=== PATIENT | male | born 1980 | race Caucasian/White ===

== ENCOUNTER → 2018-09-14 18:19 | Outpatient (CLI) | payer OTHER, SELFPAY ==
--- NOTE | 2018-09-14 18:21 | DI.RAD.S_ITS ---
PROCEDURE: XR FOOT LT MIN 3V INDICATIONS: foot pain TECHNIQUE: 3 views of the foot were acquired. COMPARISON: None. FINDINGS: Bones: No fractures or dislocations. No suspicious bony lesions. Mild degenerative joint disease in the intertarsal, tarsometatarsal and interphalangeal joints. Soft tissues: No tibiotalar joint effusion. Achilles tendon appears normal. IMPRESSION: No fracture. Mild degenerative joint disease. Dictated by: Jaun Batista M.D. on 09/14/2018 at 19:19 Approved by: Jaun Batista M.D. on 09/14/2018 at 19:21
== END ==
PROVIDERS: Visit Provider Physician Assistant
DX: M79.672 Pain in left foot (principal); M19.072 Primary osteoarthritis, left ankle and foot
CPT/HCPCS: 73630

== ENCOUNTER → 2019-06-17 15:07 | Outpatient (CLI) | payer OTHER, SELFPAY ==
[2019-06-17 15:51] LABS: PH Semen 8 (7-8)
[2019-06-17 15:53] LABS: Liquefaction Semen YES (YES); Volume Semen 2 (1.0-5.0)
[2019-06-17 15:57] LABS: Sperm Count 0 x10^6/mL (20-150)
== END ==
PROVIDERS: Visit Provider Obstetrics & Gynecology
DX: Z31.41 Encounter for fertility testing (principal)
CPT/HCPCS: 89320

== ENCOUNTER → 2019-07-31 16:09 | Outpatient (CLI) | payer OTHER, SELFPAY ==
--- NOTE | 2019-07-31 | DI.RAD.S_ITS ---
PROCEDURE: XR KNEE RT 3V INDICATIONS: Right knee pain TECHNIQUE: 3 views of the knee were acquired. COMPARISON: None. FINDINGS: Bones: No fractures or dislocations. No suspicious bony lesions. Fragmentation of the tibial tuberosity Soft tissues: No joint effusion. No suspicious soft tissue calcifications. IMPRESSION: 1. Fragmentation of the tibial tuberosity suggesting remote Bijal-Schlatter's disease. 2. No definite acute fracture or dislocation. Dictated by: Roderick Alonzo [facility] Interpreted: Yoel Thompson MD on 07/31/2019 at 16:57 Approved by: Yoel Thompson M.D. on 07/31/2019 at 17:30
== END ==
PROVIDERS: Visit Provider Student in an Organized Health Care Education/Training Program
DX: M25.561 Pain in right knee (principal)
CPT/HCPCS: 73562

== ENCOUNTER 2019-12-19 10:55 | Emergency (ER) | payer OTHER, SELFPAY ==
[2019-12-19 11:00] VITALS: BP 146/81; PULSE 93; RESP 18; TEMP 36.7; O2SAT 98
--- NOTE | 2019-12-19 11:05 | ED_ITS ---
HPI - General Adult General Chief complaint: Extremity Injury, Lower Stated complaint: Right Ankle Injury Time Seen by Provider: 12/19/19 10:57 Source: patient Mode of arrival: Wheelchair Limitations: no limitations History of Present Illness HPI narrative: 39-year-old male here for evaluation right ankle injury. Patient states that he was getting down out of his truck when he stepped awkwardly landing on the outside of his right ankle. He was able to ambulate afterwards but has quite a bit of discomfort. Has not tried anything for symptoms prior to arrival. Has never had an injury like this in the past. Related Data Home Medications Medication Instructions Recorded Confirmed glimepiride [Amaryl] 4 mg PO QDAY #0 05/24/17 omeprazole 20 mg PO QDAY #0 05/24/17 calcium carbonate 500 mg calcium 500 mg PO BID tab 09/14/18 09/14/18 (1,250 mg) tablet cholecalciferol (vitamin D3) 50 2,000 unit PO DAILY 09/14/18 09/14/18 mcg (2,000 unit) capsule citalopram 40 mg tablet 40 mg PO DAILY 09/14/18 09/14/18 lamotrigine 200 mg tablet 400 mg PO BID tab 09/14/18 09/14/18 Allergies Allergy/AdvReac Type Severity Reaction Status Date / Time amoxicillin [AMOXICILLIN] Allergy Unknown Verified 12/19/19 11:06 Review of Systems Constitutional Constitutional: Denies fever(s) ENT Ears, Nose, Mouth, and Throat: Denies disequilibrium Musculoskeletal Musculoskeletal: Denies abnormal gait Comments: Right ankle pain Integumentary/Breasts Skin/Breast: Denies lesions and Denies rash Neurologic Neurologic: Denies abnormal gait, Denies behavioral changes, Denies paresthesias and Denies disequilibrium Psychiatric Psychiatric: Denies behavioral changes Hematologic/Lymphatic Hematologic/Lymphatic: Denies easy bleeding and Denies easy bruising Patient History Medical History Seizure (Inactive) Social History Smoking Status: Former smoker (quit 10 years ago) Smoking Status: Former smoker (quit 10 years ago) Exam Initial Vital Signs Initial Vital Signs: Vital Signs Temperature 98.1 F 12/19/19 11:00 Pulse Rate 93 H 12/19/19 11:00 Respiratory Rate 18 12/19/19 11:00 Blood Pressure 146/81 H 12/19/19 11:00 Pulse Oximetry 98 12/19/19 11:00 Const General: cooperative, comfortable and well developed Limitations: mental status not altered HENMT Head: normal to inspection and normocephalic Resp Effort & Inspection: normal respiratory effort Cardio Pulses: dorsalis pedis present on the right Skin Lesions: no lesions Neuro General: alert and awake Cognition: normal cognition Speech: speech normal Extrem Other: No proximal fibula tenderness on the right. Has tenderness to palpation around the medial lateral malleolus of the right ankle. No Achilles tenderness. No tenderness along the base of the 5th metatarsal. No midfoot or toe tenderness. Psych Appearance: grossly normal and well kempt Procedures Orthopedic Splinting/Casting Injury #1: Side: right Lower Extremity Injury Location: ankle Lower Extremity Immobilizer: David wrap Post splinting neuro exam: intact Post splinting vascular exam: intact Placed by: Nursing Course Orders Ordered: ED Orders 12/19/19 11:04 XR ankle RT min 3V Stat Vital Signs Vital signs: Vital Signs - 8 hr 12/19/19 11:00 Temperature 98.1 F Pulse Rate 93 H Respiratory Rate 18 Blood Pressure 146/81 H Pulse Oximetry 98 Medical Decision Making Imaging Data Extremity x-ray #1: Radiologist's Impression: [address] [address] XRay Report Signed Patient: Guillaume Lee PMR#: [id number] : 1980Acct:[id number] Age/Sex: 39 / MDate of Service: 12/19/19 Loc: ED Accession Number: [id number] Procedure: XR ankle RT min 3V Ordering Provider: Hamilton Cabezas D.O. PROCEDURE: XR ANKLE RT MIN 3V INDICATIONS: Ankle pain after fall TECHNIQUE: 3 views of the ankle were acquired. COMPARISON: None. FINDINGS: Bones: No fractures or dislocations. Ankle mortise is normally aligned. No suspicious bony lesions. Soft tissues: Lateral malleolar soft tissue edema is present. Achilles tendon appears normal. IMPRESSION: Lateral malleolar soft tissue edema. No visualized acute fracture or dislocation. However, if clinical concern and/or pain persist, short interval imaging followup in 7-10 days is recommended, as occult injury cannot be definitively excluded. Dictated by: Mackenzie Contreras M.D. on 12/19/2019 at 11:29 Approved by: Mackenzie Contreras M.D. on 12/19/2019 at 11:30 MDM Narrative Medical decision making narrative: Neurovascular intact, no fractures on the x- rays, placed in a David bandage for comfort. He states that he has crutches at home. We did discuss return precautions and follow-up instructions in care instructions. He expressed understanding and agreement. Discharge Plan Departure Patient Disposition: Home Clinical Impression: Ankle sprain and strain Instructions: DI for Ankle Sprain, How To Perform RICE (Rest, Ice, Compress, Elevate), How to Apply an Elastic Wrap on Ankle Activity Restrictions/Additional Instructions: There were no fractures on the x-rays. I do recommend you keep your ankle elevated and iced as much as possible however you can walk on your right leg has tolerated. Contact her primary provider for follow-up. Prescriptions: No Action lamotrigine 200 mg tablet 400 mg PO BID RF: 0 citalopram [Celexa] 40 mg tablet 40 mg PO DAILY RF: 0 cholecalciferol (vitamin D3) 2,000 unit capsule 2,000 unit PO DAILY RF: 0 calcium carbonate [Calcium 500] 500 mg calcium (1,250 mg) tablet 500 mg PO BID RF: 0 glimepiride [Amaryl] 4 MG tablet 4 mg PO QDAY Qty: 0 RF: 0 omeprazole 20 MG capsule,delayed release(DR/EC) 20 mg PO QDAY Qty: 0 RF: 0
== END 2019-12-19 12:03 | disposition home or self-care (01) ==
PROVIDERS: Emergency Provider Emergency Medicine
DX: S93.401A Sprain of unspecified ligament of right ankle, initial encounter (principal); S96.911A Strain of unspecified muscle and tendon at ankle and foot level, right foot, initial encounter; X58.XXXA Exposure to other specified factors, initial encounter
CPT/HCPCS: 73610; 99283

== ENCOUNTER 2023-01-04 17:56 | Emergency (ER) | payer SELFPAY ==
[2023-01-04] VITALS (15 sets, daily range): BP systolic 119–137; BP diastolic 62–83; PULSE 66–99; RESP 12–41; TEMP 37.1; O2SAT 93–98; BMI 36.2
--- NOTE | 2023-01-04 18:10 | DI.CT.S_ITS ---
PROCEDURE: CT HEAD/BRAIN WO CON INDICATIONS: seizure disorder, more frequent than normal TECHNIQUE: Noncontrast 4.5 mm thick angled axial sections acquired from the foramen magnum to the vertex, with coronal and sagittal reformats. For radiation dose reduction, the following was used: automated exposure control, adjustment of mA and/or kV according to patient size. COMPARISON: [facility], CT, HEAD WITHOUT CONTRAST, 05/24/2017, 13:16. FINDINGS: Image quality: Excellent. CSF spaces: Basal cisterns are patent. No extra-axial fluid collections. Ventricles are normal in size and shape. Brain: No midline shift. No intracranial masses or hemorrhage. Barkley-white matter interface is normal. Skull and face: Calvarium and visualized facial bones are intact, without suspicious lesions. Sinuses: Visualized sinuses and mastoids are clear. IMPRESSION: Normal CT of the brain Approved by: Jose Unger M.D. on 01/04/2023 at 17:37
--- NOTE | 2023-01-04 18:10 | ED_ITS ---
HPI - Seizure <Mary Dixon, - Last Filed: 01/05/23 18:27> General Chief Complaint: Seizure Stated Complaint: aime is having multiple siezures Time Seen by Provider: 01/04/23 18:01 History of Present Illness HPI Narrative: This is a 42-year-old male with history of seizure disorder, typically petite mal seizures where he turns his head to the right and has upper extremity shaking, diabetes and GERD. Patient presents with complaint of increased freq uency of seizure activity and change in type of seizure. Patient typically has seizures about every 2 weeks, he and his partner state he is had 3 seizures in the last 24 hours to her petite mal lasting 15 seconds to a minute which is and 1 appeared to be tonic-clonic which lasted min in length. The most recent was at 4:45 p.m. today and the initial was around 10:00pm. in the evening yesterday. Patient's seizures typically about 15 seconds. Patient did have some lacerations on his lips and tongue. Use complain of little bit headache. He states his aphasia which is always present is a little bit worse. He has not appreciate any weakness, numbness or loss of sensation. He denies fevers, no cold cough or congestion. No chest pain or shortness of breath, no vomiting but some mild nausea intermittently. No diarrhea, constipation, black or bloody stools. No dysuria, urgency or frequency. They are not aware of any bowel or bladder incontinence with his seizure activity or otherwise. Patient has been ambulating and moving normally. Patient does note he missed 1 dose of his [place] buddy yesterday morning which is atypical. And he was off his acarbose for a period of time. His medications are acarbose, glimepiride, lamotrigine and citalopram. His lamotrigine dose is 400 mg b.i.d.. Does not believe he is had any prior surgeries. Allergic to amoxicillin. No tobacco, rare alcohol none recently, does use THC. No other illicit. Patient sees neurology with [facility], most recent visit was with Dr. Petey Song. He states he has been on his lamotrigine dose for quite some time at least 1-2 years maybe longer. Related Data Home Medications Medication Instructions Recorded Confirmed glimepiride 4 mg tablet (Amaryl) 4 mg PO QDAY ##0 05/24/17 06/27/22 omeprazole 20 mg capsule,delayed 20 mg PO QDAY ##0 05/24/17 06/27/22 release calcium carbonate 500 mg calcium 500 mg PO BID 09/14/18 06/27/22 (1,250 mg) tablet (Calcium 500) cholecalciferol (vitamin D3) 50 2,000 unit PO DAILY 09/14/18 06/27/22 mcg (2,000 unit) capsule citalopram 40 mg tablet (Celexa) 40 mg PO DAILY 09/14/18 06/27/22 lamotrigine 200 mg tablet 400 mg PO BID 09/14/18 06/27/22 Previous Rx's Medication Instructions Recorded levetiracetam 500 mg tablet 500 mg PO BID #60 tabs 01/05/23 (Keppra) Allergies Allergy/AdvReac Type Severity Reaction Status Date / Time amoxicillin [AMOXICILLIN] Allergy Unknown Verified 01/04/23 18:18 Review of Systems <Mary Dixon DO - Last Filed: 01/05/23 18:27> Review of Systems ROS Unobtainable: All systems reviewed & are unremarkable except as noted in HPI and below Patient History <Mary Dixon DO - Last Filed: 01/05/23 18:27> Medical History (Updated 01/04/23 @ 19:42 by Mary Dixon DO) Seizure Social History Smoking Status: Former smoker (quit 10 years ago) Smoking Status: Former smoker (quit 10 years ago) alcohol intake frequency: 0-2 drinks per day Substance Use Type: marijuana Exam <Mary Dixon DO - Last Filed: 01/05/23 18:27> Narrative Exam Narrative: GEN: well nourished, well appearing male, alert and oriented x 3, patient appears to be in mild distress. HEENT: Atraumatic, pupils are equal round reactive to light, extraocular movements are intact, nares are clear, TMs are clear with no fluid. Throat is clear without any exudates, erythema, tonsillar enlargement or uvular deviation HEART: Regular rate and rhythm without murmur, clicks, rubs. Pulses are equal in upper and lower extremities LUNGS:Lungs clear to auscultation, no wheezes, rales, crackles, chest moves symmetrically ABD:bowel sounds normal, soft, non-tender, no guarding, rebound, rigidity, no m asses noted, no hepatosplenomegaly :No CVA tenderness MSCL: Non-tender, no muscle atrophy, muscles strength 5/5 upper and lower extremities, full range of motion NEURO:CN 2-12 intact, sensation normal, reflexes 2/4 upper and lower extremities. finger nose finger test normal, heel haro test normal SKIN: No rash, erythema or other skin changes Initial Vital Signs Initial Vital Signs: Vital Signs Temperature 98.8 F 01/04/23 18:00 Pulse Rate 99 H 01/04/23 18:00 Respiratory Rate 18 01/04/23 18:00 Blood Pressure 134/62 01/04/23 18:00 Pulse Oximetry 97 01/04/23 18:00 Oxygen Delivery Method Room Air 01/04/23 18:00 <Allen De DO - Last Filed: 01/05/23 16:44> Initial Vital Signs Initial Vital Signs: Vital Signs Temperature 98.8 F 01/04/23 18:00 Pulse Rate 99 H 01/04/23 18:00 Respiratory Rate 18 01/04/23 18:00 Blood Pressure 134/62 01/04/23 18:00 Pulse Oximetry 97 01/04/23 18:00 Oxygen Delivery Method Room Air 01/04/23 18:00 Scores <Mary Dixon DO - Last Filed: 01/05/23 18:27> GCS [place] coma scale eye opening: Spontaneous [place] coma scale verbal response: Orientated [place] coma scale motor response: Obey commands [place] coma scale total score: 15 <Allen De DO - Last Filed: 01/05/23 16:44> GCS [place] coma scale total score: 15 Course <Mary Dixon DO - Last Filed: 01/05/23 18:27> Orders Ordered: Discontinued Medications Sodium Chloride (Normal Saline 0.9%) 1,000 mls @ 1,000 mls/hr IV BOLUS ONE Stop: 01/04/23 19:09 Last Infusion: 01/04/23 19:46 Dose: 0 mls/hr Documented By: Admin: 01/04/23 18:53 Dose: 1,000 mls/hr Documented By: KB Levetiracetam 1,000 mg/ Sodium (Chloride) 110 mls @ 440 mls/hr IV NOW ONE Stop: 01/04/23 18:11 Last Infusion: 01/04/23 19:12 Dose: 0 mls/hr Documented By: Admin: 01/04/23 18:40 Dose: 440 mls/hr Documented By: ESAU Levetiracetam (Levetiracetam 250 Mg Tablet) 500 mg PO BID [facility] Last Admin: 01/05/23 08:29 Dose: Not Given Documented By: Admin: 01/05/23 05:11 Dose: 500 mg Documented By: LISANDRA Levetiracetam (Levetiracetam 250 Mg Tablet) 500 mg PO 0500,1700 [facility] Last Admin: 01/05/23 16:34 Dose: 500 mg Documented By: AT Morphine Sulfate (Morphine 2 Mg/Ml Inj) 2 mg IV NOW ONE Stop: 01/04/23 20:17 Last Admin: 01/04/23 20:23 Dose: 2 mg Documented By: LISANDRA Vital Signs Vital signs: Vital Signs - 8 hr 01/05/23 10:30 01/05/23 10:30 01/05/23 11:00 Pulse Rate 74 Respiratory Rate 34 H Blood Pressure 123/68 125/74 Pulse Oximetry 95 Oxygen Delivery Method 01/05/23 11:00 01/05/23 11:30 01/05/23 11:30 Pulse Rate 91 H 80 Respiratory Rate 16 18 Blood Pressure 118/67 Pulse Oximetry 96 96 Oxygen Delivery Method Room Air 01/05/23 12:02 01/05/23 12:30 01/05/23 13:00 Pulse Rate 85 78 65 Respiratory Rate 15 Blood Pressure Pulse Oximetry Oxygen Delivery Method 01/05/23 13:30 01/05/23 14:00 01/05/23 14:30 Pulse Rate 61 58 L 58 L Respiratory Rate 13 16 16 Blood Pressure Pulse Oximetry 95 Oxygen Delivery Method 01/05/23 15:00 01/05/23 15:30 01/05/23 16:29 Pulse Rate 51 L 74 Respiratory Rate 16 22 Blood Pressure 121/59 L Pulse Oximetry 96 98 Oxygen Delivery Method Room Air Room Air 01/05/23 16:00 Pulse Rate 72 Respiratory Rate 18 Blood Pressure Pulse Oximetry 98 Oxygen Delivery Method <DO Una Ignacio Last Filed: 01/05/23 16:44> Orders Ordered: Discontinued Medications Sodium Chloride (Normal Saline 0.9%) 1,000 mls @ 1,000 mls/hr IV BOLUS ONE Stop: 01/04/23 19:09 Last Infusion: 01/04/23 19:46 Dose: 0 mls/hr Documented By: Admin: 01/04/23 18:53 Dose: 1,000 mls/hr Documented By: ESAU Levetiracetam 1,000 mg/ Sodium (Chloride) 110 mls @ 440 mls/hr IV NOW ONE Stop: 01/04/23 18:11 Last Infusion: 01/04/23 19:12 Dose: 0 mls/hr Documented By: Admin: 01/04/23 18:40 Dose: 440 mls/hr Documented By: ESAU Levetiracetam (Levetiracetam 250 Mg Tablet) 500 mg PO BID [facility] Last Admin: 01/05/23 08:29 Dose: Not Given Documented By: Admin: 01/05/23 05:11 Dose: 500 mg Documented By: LISANDRA Levetiracetam (Levetiracetam 250 Mg Tablet) 500 mg PO 0500,1700 [facility] Last Admin: 01/05/23 16:34 Dose: 500 mg Documented By: JANNY Morphine Sulfate (Morphine 2 Mg/Ml Inj) 2 mg IV NOW ONE Stop: 01/04/23 20:17 Last Admin: 01/04/23 20:23 Dose: 2 mg Documented By: LISANDRA Vital Signs Vital signs: Vital Signs - 8 hr 01/05/23 10:30 01/05/23 10:30 01/05/23 11:00 Pulse Rate 74 Respiratory Rate 34 H Blood Pressure 123/68 125/74 Pulse Oximetry 95 Oxygen Delivery Method 01/05/23 11:00 01/05/23 11:30 01/05/23 11:30 Pulse Rate 91 H 80 Respiratory Rate 16 18 Blood Pressure 118/67 Pulse Oximetry 96 96 Oxygen Delivery Method Room Air 01/05/23 12:02 01/05/23 12:30 01/05/23 13:00 Pulse Rate 85 78 65 Respiratory Rate 15 Blood Pressure Pulse Oximetry Oxygen Delivery Method 01/05/23 13:30 01/05/23 14:00 01/05/23 14:30 Pulse Rate 61 58 L 58 L Respiratory Rate 13 16 16 Blood Pressure Pulse Oximetry 95 Oxygen Delivery Method 01/05/23 15:00 01/05/23 15:30 01/05/23 16:29 Pulse Rate 51 L 74 Respiratory Rate 16 22 Blood Pressure 121/59 L Pulse Oximetry 96 98 Oxygen Delivery Method Room Air Room Air 01/05/23 16:00 Pulse Rate 72 Respiratory Rate 18 Blood Pressure Pulse Oximetry 98 Oxygen Delivery Method MDM - Seizure <Mary Dixon, DO - Last Filed: 01/05/23 18:27> Lab Data 01/04/23 18:11 01/04/23 18:11 Labs: Lab Results 01/04/23 01/04/23 01/04/23 Range/Units 18:11 18:11 18:11 WBC 8.9 (4.5-11.0) X10^3/uL RBC 5.16 (4.5-5.9) X10^6/uL Hgb 16.1 (13.5-17.5) g/dL Hct 46.8 (41-53) % MCV 90.6 (80-100) fL MCH 31.2 (26-34) PG MCHC 34.5 (30-36) % RDW 12.5 (11.6-14.8) % Plt Count 220 (150-400) X10^3/uL Neut % (Auto) 71.4 (50-75) % Lymph % (Auto) 20.0 L (25-40) % [place] % (Auto) 7.0 (3-14) % Eos % (Auto) 0.9 L (2-4) % Baso % (Auto) 0.7 (0-2) % Neut # (Auto) 6300 (2021-1402) /uL Lymph # (Auto) 1800 (0884-2590) /uL [place] # (Auto) 600 (0-900) /uL Eos # (Auto) 100 (0-450) /uL Baso # (Auto) 100 (0-100) /uL Sodium 134 L (137-145) mmol/L Potassium 3.8 (3.4-5.1) mmol/L Chloride 97 L (98-107) mmol/L Carbon Dioxide 29 (22-32) mmol/L BUN 15 (9-20) mg/dL Creatinine 0.66 (0.66-1.25) mg/dL Estimated GFR > 60 (>60) mL/min BUN/Creatinine Ratio 22.7 H (6-22) Glucose 361 H (70-100) mg/dL Calcium 9.4 (8.4-10.2) mg/dL Total Bilirubin 1.7 H (0.2-1.3) mg/dL AST 31 (17-59) IU/L ALT 34 (<50) IU/L Alkaline Phosphatase 99 (38-126) U/L Total Creatine Kinase 320 H (55-170) U/L Total Protein 7.7 (6.3-8.2) g/dL Albumin 4.3 (3.5-5.0) g/dL Globulin 3.4 (1.7-4.1) g/dL Albumin/Globulin Ratio 1.3 (1.0-2.8) Lipase 135 (23-300) U/L Urine RBC (0-5/HPF) Urine WBC (0-5/HPF) Ur Squamous Epith Cells (0-5/HPF) Urine Bacteria (None) Ur Culture Indicated? U Opiates 300ng/mL cut (Negative) Ur Oxycodone Screen (Negative) Urine Methadone Screen (Negative) Ur Barbiturates Screen (Negative) U Tricyclic Antidepress (Negative) Ur Phencyclidine Scrn (Negative) Ur Amphetamines Screen (Negative) U Methamphetamines Scrn (Negative) Ur MDMA Scrn (Ecstasy) (Negative) U Benzodiazepines Scrn (Negative) Urine Cocaine Screen (Negative) U Marijuana (THC) Screen (Negative) Ethyl Alcohol < 10 ( - 10) mg/dL Ketones (<0.27) mmol/L SARS-CoV-2 (PCR) (Negative) 01/04/23 01/04/23 01/04/23 Range/Units 18:11 19:30 19:40 WBC (4.5-11.0) X10^3/uL RBC (4.5-5.9) X10^6/uL Hgb (13.5-17.5) g/dL Hct (41-53) % MCV (80-100) fL MCH (26-34) PG MCHC (30-36) % RDW (11.6-14.8) % Plt Count (150-400) X10^3/uL Neut % (Auto) (50-75) % Lymph % (Auto) (25-40) % [place] % (Auto) (3-14) % Eos % (Auto) (2-4) % Baso % (Auto) (0-2) % Neut # (Auto) (2854-2439) /uL Lymph # (Auto) (7682-9493) /uL [place] # (Auto) (0-900) /uL Eos # (Auto) (0-450) /uL Baso # (Auto) (0-100) /uL Sodium (137-145) mmol/L Potassium (3.4-5.1) mmol/L Chloride (98-107) mmol/L Carbon Dioxide (22-32) mmol/L BUN (9-20) mg/dL Creatinine (0.66-1.25) mg/dL Estimated GFR (>60) mL/min BUN/Creatinine Ratio (6-22) Glucose (70-100) mg/dL Calcium (8.4-10.2) mg/dL Total Bilirubin (0.2-1.3) mg/dL AST (17-59) IU/L ALT (<50) IU/L Alkaline Phosphatase (38-126) U/L Total Creatine Kinase (55-170) U/L Total Protein (6.3-8.2) g/dL Albumin (3.5-5.0) g/dL Globulin (1.7-4.1) g/dL Albumin/Globulin Ratio (1.0-2.8) Lipase (23-300) U/L Urine RBC (0-5/HPF) Urine WBC (0-5/HPF) Ur Squamous Epith Cells (0-5/HPF) Urine Bacteria (None) Ur Culture Indicated? U Opiates 300ng/mL cut Negative (Negative) Ur Oxycodone Screen Negative (Negative) Urine Methadone Screen Negative (Negative) Ur Barbiturates Screen Negative (Negative) U Tricyclic Antidepress Negative (Negative) Ur Phencyclidine Scrn Negative (Negative) Ur Amphetamines Screen Negative (Negative) U Methamphetamines Scrn Negative (Negative) Ur MDMA Scrn (Ecstasy) Negative (Negative) U Benzodiazepines Scrn Negative (Negative) Urine Cocaine Screen Negative (Negative) U Marijuana (THC) Screen Positive H (Negative) Ethyl Alcohol ( - 10) mg/dL Ketones 0.04 (<0.27) mmol/L SARS-CoV-2 (PCR) Negative (Negative) 01/04/23 Range/Units 19:40 WBC (4.5-11.0) X10^3/uL RBC (4.5-5.9) X10^6/uL Hgb (13.5-17.5) g/dL Hct (41-53) % MCV (80-100) fL MCH (26-34) PG MCHC (30-36) % RDW (11.6-14.8) % Plt Count (150-400) X10^3/uL Neut % (Auto) (50-75) % Lymph % (Auto) (25-40) % [place] % (Auto) (3-14) % Eos % (Auto) (2-4) % Baso % (Auto) (0-2) % Neut # (Auto) (6026-9788) /uL Lymph # (Auto) (2620-3433) /uL [place] # (Auto) (0-900) /uL Eos # (Auto) (0-450) /uL Baso # (Auto) (0-100) /uL Sodium (137-145) mmol/L Potassium (3.4-5.1) mmol/L Chloride (98-107) mmol/L Carbon Dioxide (22-32) mmol/L BUN (9-20) mg/dL Creatinine (0.66-1.25) mg/dL Estimated GFR (>60) mL/min BUN/Creatinine Ratio (6-22) Glucose (70-100) mg/dL Calcium (8.4-10.2) mg/dL Total Bilirubin (0.2-1.3) mg/dL AST (17-59) IU/L ALT (<50) IU/L Alkaline Phosphatase (38-126) U/L Total Creatine Kinase (55-170) U/L Total Protein (6.3-8.2) g/dL Albumin (3.5-5.0) g/dL Globulin (1.7-4.1) g/dL Albumin/Globulin Ratio (1.0-2.8) Lipase (23-300) U/L Urine RBC None seen (0-5/HPF) Urine WBC 0-1/hpf (0-5/HPF) Ur Squamous Epith Cells None seen (0-5/HPF) Urine Bacteria None seen (None) Ur Culture Indicated? Cult not indicated U Opiates 300ng/mL cut (Negative) Ur Oxycodone Screen (Negative) Urine Methadone Screen (Negative) Ur Barbiturates Screen (Negative) U Tricyclic Antidepress (Negative) Ur Phencyclidine Scrn (Negative) Ur Amphetamines Screen (Negative) U Methamphetamines Scrn (Negative) Ur MDMA Scrn (Ecstasy) (Negative) U Benzodiazepines Scrn (Negative) Urine Cocaine Screen (Negative) U Marijuana (THC) Screen (Negative) Ethyl Alcohol ( - 10) mg/dL Ketones (<0.27) mmol/L SARS-CoV-2 (PCR) (Negative) Point of Care Testing Glucose POC [address] scan - head: Radiologist's Impression: [address] [address] [address] Scan Report Signed Patient: Guillaume Lee MR#: [id number] : 1980 Acct:[id number] Age/Sex: 42 / M Date of Service: 01/04/23 Loc: ED Accession Number: [id number] ?? Procedure: CT head/brain wo con Ordering Provider: Mary Dixon D.O. PROCEDURE:? CT HEAD/BRAIN WO CON ? INDICATIONS:? seizure disorder, more frequent than normal ? TECHNIQUE:? Noncontrast 4.5 mm thick angled axial sections acquired from the foramen magnum to the vertex, with coronal and sagittal reformats.? For radiation dose reduction, the following was used:? automated exposure control, adjustment of mA and/or kV according to patient size.? ? COMPARISON:? [facility], CT, HEAD WITHOUT CONTRAST, 05/24/2017, 13:16. ? FINDINGS:? Image quality:? Excellent.? ? CSF spaces:? Basal cisterns are patent.? No extra-axial fluid collections.? Ventricles are normal in size and shape.? ? Brain:? No midline shift.? No intracranial masses or hemorrhage.? [place]-white matter interface is normal.? ? Skull and face:? Calvarium and visualized facial bones are intact, without juan picious lesions.? ? Sinuses:? Visualized sinuses and mastoids are clear.? ? IMPRESSION:? Normal CT of the brain ? ? ? Approved by: Jose Unger M.D. on 01/04/2023 at 17:37? ECG Data Attestation: I personally reviewed and interpreted this ECG as follows: Interpretation: Normal sinus rhythm rate 82 MI 172 QRS of 98 QTC of 408. No acute ST changes. MDM Narrative Medical decision making narrative: This is a 42-year-old male history of seizure disorder with increased frequency and a change in character of seizures. Patient normally petit mal seizures that last 15 seconds that consistent turning his head to the right and shaking of his upper body usually once every 2 weeks. He is noticed increase in frequency little bit over the past month but specifically 3 episodes in the past [address] was obtained which is negative for acute change. Patient is hyperglycemic with a sugar of 360. Patient's CBC shows normal white count, hemoglobin/hematocrit and platelets. Lymphocytes are low with normal neutrophils. Chemistry shows a sodium of 134 chloride 97, CO2 of 29 with normal renal function and BUN. Glucose is 361 sodium corrected is 138. Anion gap would be 8, 12 of corrected. Patient's bilirubin is 1.7 but similar to 2017 when he was 2.1. Total CK slightly elevated at 320 otherwise normal LFTs. ETOH is negative. Urine and U tox show Suspect some of patient's changes maybe related to his hyperglycemia he received a L fluids, recheck glucose afterwards. Discussed with patient he just restart ed his acarbose about 5 days ago, also notes he has not been checking his sugars for some time she and his partner note that 200 is typically a good number for and that he might be quite higher typically. Spoke with Dr. Song, neurology recommend patient be loaded with a 1000 mg Keppra, then 500 mg p.o. b.i.d. as his new 2nd anti convulsant had being observed for additional seizures for concern for status epilepticus. If patient is seizure free can d/c home. Spoke with Dr. Brennan, hospitalist would asked that we try to transfer as we do not have Neurology here and we do not have EEG capability. Attempted to find placement for patient with no luck. Patient could likely be discharged home today after 24 hours observation if no additional changes or seizure activity with follow up with Dr. Song. <Allen De DO - Last Filed: 01/05/23 16:44> Lab Data Labs: Lab Results 01/04/23 01/04/23 01/04/23 Range/Units 18:11 18:11 18:11 WBC 8.9 (4.5-11.0) X10^3/uL RBC 5.16 (4.5-5.9) X10^6/uL Hgb 16.1 (13.5-17.5) g/dL Hct 46.8 (41-53) % MCV 90.6 (80-100) fL MCH 31.2 (26-34) PG MCHC 34.5 (30-36) % RDW 12.5 (11.6-14.8) % Plt Count 220 (150-400) X10^3/uL Neut % (Auto) 71.4 (50-75) % Lymph % (Auto) 20.0 L (25-40) % [place] % (Auto) 7.0 (3-14) % Eos % (Auto) 0.9 L (2-4) % Baso % (Auto) 0.7 (0-2) % Neut # (Auto) 6300 (1767-1692) /uL Lymph # (Auto) 1800 (7362-4531) /uL [place] # (Auto) 600 (0-900) /uL Eos # (Auto) 100 (0-450) /uL Baso # (Auto) 100 (0-100) /uL Sodium 134 L (137-145) mmol/L Potassium 3.8 (3.4-5.1) mmol/L Chloride 97 L (98-107) mmol/L Carbon Dioxide 29 (22-32) mmol/L BUN 15 (9-20) mg/dL Creatinine 0.66 (0.66-1.25) mg/dL Estimated GFR > 60 (>60) mL/min BUN/Creatinine Ratio 22.7 H (6-22) Glucose 361 H (70-100) mg/dL Calcium 9.4 (8.4-10.2) mg/dL Total Bilirubin 1.7 H (0.2-1.3) mg/dL AST 31 (17-59) IU/L ALT 34 (<50) IU/L Alkaline Phosphatase 99 (38-126) U/L Total Creatine Kinase 320 H (55-170) U/L Total Protein 7.7 (6.3-8.2) g/dL Albumin 4.3 (3.5-5.0) g/dL Globulin 3.4 (1.7-4.1) g/dL Albumin/Globulin Ratio 1.3 (1.0-2.8) Lipase 135 (23-300) U/L Urine RBC (0-5/HPF) Urine WBC (0-5/HPF) Ur Squamous Epith Cells (0-5/HPF) Urine Bacteria (None) Ur Culture Indicated? U Opiates 300ng/mL cut (Negative) Ur Oxycodone Screen (Negative) Urine Methadone Screen (Negative) Ur Barbiturates Screen (Negative) U Tricyclic Antidepress (Negative) Ur Phencyclidine Scrn (Negative) Ur Amphetamines Screen (Negative) U Methamphetamines Scrn (Negative) Ur MDMA Scrn (Ecstasy) (Negative) U Benzodiazepines Scrn (Negative) Urine Cocaine Screen (Negative) U Marijuana (THC) Screen (Negative) Ethyl Alcohol < 10 ( - 10) mg/dL Ketones (<0.27) mmol/L SARS-CoV-2 (PCR) (Negative) 01/04/23 01/04/23 01/04/23 Range/Units 18:11 19:30 19:40 WBC (4.5-11.0) X10^3/uL RBC (4.5-5.9) X10^6/uL Hgb (13.5-17.5) g/dL Hct (41-53) % MCV (80-100) fL MCH (26-34) PG MCHC (30-36) % RDW (11.6-14.8) % Plt Count (150-400) X10^3/uL Neut % (Auto) (50-75) % Lymph % (Auto) (25-40) % [place] % (Auto) (3-14) % Eos % (Auto) (2-4) % Baso % (Auto) (0-2) % Neut # (Auto) (0879-0809) /uL Lymph # (Auto) (6594-2775) /uL [place] # (Auto) (0-900) /uL Eos # (Auto) (0-450) /uL Baso # (Auto) (0-100) /uL Sodium (137-145) mmol/L Potassium (3.4-5.1) mmol/L Chloride (98-107) mmol/L Carbon Dioxide (22-32) mmol/L BUN (9-20) mg/dL Creatinine (0.66-1.25) mg/dL Estimated GFR (>60) mL/min BUN/Creatinine Ratio (6-22) Glucose (70-100) mg/dL Calcium (8.4-10.2) mg/dL Total Bilirubin (0.2-1.3) mg/dL AST (17-59) IU/L ALT (<50) IU/L Alkaline Phosphatase (38-126) U/L Total Creatine Kinase (55-170) U/L Total Protein (6.3-8.2) g/dL Albumin (3.5-5.0) g/dL Globulin (1.7-4.1) g/dL Albumin/Globulin Ratio (1.0-2.8) Lipase (23-300) U/L Urine RBC (0-5/HPF) Urine WBC (0-5/HPF) Ur Squamous Epith Cells (0-5/HPF) Urine Bacteria (None) Ur Culture Indicated? U Opiates 300ng/mL cut Negative (Negative) Ur Oxycodone Screen Negative (Negative) Urine Methadone Screen Negative (Negative) Ur Barbiturates Screen Negative (Negative) U Tricyclic Antidepress Negative (Negative) Ur Phencyclidine Scrn Negative (Negative) Ur Amphetamines Screen Negative (Negative) U Methamphetamines Scrn Negative (Negative) Ur MDMA Scrn (Ecstasy) Negative (Negative) U Benzodiazepines Scrn Negative (Negative) Urine Cocaine Screen Negative (Negative) U Marijuana (THC) Screen Positive H (Negative) Ethyl Alcohol ( - 10) mg/dL Ketones 0.04 (<0.27) mmol/L SARS-CoV-2 (PCR) Negative (Negative) 01/04/23 Range/Units 19:40 WBC (4.5-11.0) X10^3/uL RBC (4.5-5.9) X10^6/uL Hgb (13.5-17.5) g/dL Hct (41-53) % MCV (80-100) fL MCH (26-34) PG MCHC (30-36) % RDW (11.6-14.8) % Plt Count (150-400) X10^3/uL Neut % (Auto) (50-75) % Lymph % (Auto) (25-40) % [place] % (Auto) (3-14) % Eos % (Auto) (2-4) % Baso % (Auto) (0-2) % Neut # (Auto) (9283-8452) /uL Lymph # (Auto) (9670-0724) /uL [place] # (Auto) (0-900) /uL Eos # (Auto) (0-450) /uL Baso # (Auto) (0-100) /uL Sodium (137-145) mmol/L Potassium (3.4-5.1) mmol/L Chloride (98-107) mmol/L Carbon Dioxide (22-32) mmol/L BUN (9-20) mg/dL Creatinine (0.66-1.25) mg/dL Estimated GFR (>60) mL/min BUN/Creatinine Ratio (6-22) Glucose (70-100) mg/dL Calcium (8.4-10.2) mg/dL Total Bilirubin (0.2-1.3) mg/dL AST (17-59) IU/L ALT (<50) IU/L Alkaline Phosphatase (38-126) U/L Total Creatine Kinase (55-170) U/L Total Protein (6.3-8.2) g/dL Albumin (3.5-5.0) g/dL Globulin (1.7-4.1) g/dL Albumin/Globulin Ratio (1.0-2.8) Lipase (23-300) U/L Urine RBC None seen (0-5/HPF) Urine WBC 0-1/hpf (0-5/HPF) Ur Squamous Epith Cells None seen (0-5/HPF) Urine Bacteria None seen (None) Ur Culture Indicated? Cult not indicated U Opiates 300ng/mL cut (Negative) Ur Oxycodone Screen (Negative) Urine Methadone Screen (Negative) Ur Barbiturates Screen (Negative) U Tricyclic Antidepress (Negative) Ur Phencyclidine Scrn (Negative) Ur Amphetamines Screen (Negative) U Methamphetamines Scrn (Negative) Ur MDMA Scrn (Ecstasy) (Negative) U Benzodiazepines Scrn (Negative) Urine Cocaine Screen (Negative) U Marijuana (THC) Screen (Negative) Ethyl Alcohol ( - 10) mg/dL Ketones (<0.27) mmol/L SARS-CoV-2 (PCR) (Negative) Point of Care Testing Glucose POC 220 MDM Narrative Medical decision making narrative: This is a 42-year-old male history of seizure disorder with increased frequency and a change in character of seizures. Patient normally petit mal seizures that last 15 seconds that consistent turning his head to the right and shaking of his upper body usually once every 2 weeks. He is noticed increase in frequency little bit over the past month but specifically 3 episodes in the past [address] was obtained which is negative for acute change. Patient is hyperglycemic with a sugar of 360. Patient's CBC shows normal white count, hemoglobin/hematocrit and platelets. Lymphocytes are low with normal neutrophils. Chemistry shows a sodium of 134 chloride 97, CO2 of 29 with normal renal function and BUN. Glucose is 361 sodium corrected is 138. Anion gap would be 8, 12 of corrected. Patient's bilirubin is 1.7 but similar to 2017 when he was 2.1. Total CK slightly elevated at 320 otherwise normal LFTs. ETOH is negative. Urine and U tox show Suspect some of patient's changes maybe related to his hyperglycemia he received a L fluids, recheck glucose afterwards. Discussed with patient he just restarted his acarbose about 5 days ago, also notes he has not been checking his sugars for some time she and his partner note that 200 is typically a good number for and that he might be quite higher typically. Spoke with Dr. Song, neurology recommend patient be loaded with a 1000 mg Keppra, then 500 mg p.o. b.i.d. as his new 2nd anti convulsant had being observed for additional seizures for concern for status epilepticus. If patient is seizure free can d/c home. Spoke with Dr. Brennan, hospitalist would asked that we try to transfer as we do not have Neurology here and we do not have EEG capability. Attempted to find placement for patient with no luck. Patient could likely be discharged home today after 24 hours observation if no additional changes or seizure activity with follow up with Dr. Song. [0700] (Santino) Patient received in sign out from [Destiny]. I have reviewed the clinical course and performed an independent history and physical exam. Patient has been resting comfortably for the duration of the day with no ongoing seizure-like activity. Per the discussions above the plan is discharge at the 24 hour manas, prescriptions sent for Keppra. He will call neurology office in the morning to arrange for follow-up Discharge Plan Departure Patient Disposition: Home Clinical Impression: Increasing frequency of seizure activity, Hyperglycemia Instructions: DI for Seizure Disorder -- Adult Activity Restrictions/Additional Instructions: Please follow-up with Dr. Song for recheck. Please call for an appointment. You do have hyperglycemia or elevated blood glucose, continue taking her medications including your acarbose regularly. I would recommend restarting checking your glucose and following up with your physician to adjust medications if your numbers are not improving after being on your daily medications regularly. Please continue Lamictal as your usual prescribed dose. Please start and continue Keppra at 500mg twice daily. Prescription printed. Please return for any recurrent seizure activity, altered mental status, fevers, nausea, vomiting, new numbness, tingling weakness, difficulty with speech, difficulty with movement or other new or concerning changes. Prescriptions: New levetiracetam [Keppra] 500 mg tablet 500 mg PO BID Qty: 60 0RF No Action lamotrigine 200 mg tablet 400 mg PO BID citalopram [Celexa] 40 mg tablet 40 mg PO DAILY cholecalciferol (vitamin D3) 2,000 unit capsule 2,000 unit PO DAILY calcium carbonate [Calcium 500] 500 mg calcium (1,250 mg) tablet 500 mg PO BID glimepiride [Amaryl] 4 MG tablet 4 mg PO QDAY Qty: 0 omeprazole 20 MG capsule,delayed release(DR/EC) 20 mg PO QDAY Qty: 0 Referrals: Miscellaneous,MD Lety [Primary Care Provider] - Petey Song MD [Non-Staff] - Stand Alone Forms: Patient Portal/API
[2023-01-04 18:29] LABS: Add Manual Diff / Slide Review NO; Basophils Absolute Auto 100 /uL (0-100); Basophils Percent Auto 0.7 % (0-2); Eosinophils Absolute Auto 100 /uL (0-450); Eosinophils Percent Auto 0.9 % (2-4); Hematocrit 46.8 % (41-53); Hemoglobin 16.1 g/dL (13.5-17.5); Lymphocytes Absolute Auto 1800 /uL (1100-4500); Mean Corpuscular HGB Conc 34.5 % (30-36); Mean Corpuscular Hemoglobin 31.2 PG (26-34); Mean Corpuscular Volume 90.6 fL (80-100); Monocytes Absolute Auto 600 /uL (0-900); Neutrophils Absolute Auto 6300 /uL (1500-7000); Neutrophils Percent Auto 71.4 % (50-75); Platelet Count 220 X10^3/uL (150-400); Red Blood Cell Count 5.16 X10^6/uL (4.5-5.9); Red Cell Distribution Width 12.5 % (11.6-14.8); White Blood Cell Count 8.9 X10^3/uL (4.5-11.0)
[2023-01-04 18:34] LABS: Creatine Kinase 320 U/L (55-170)
[2023-01-04 18:36] LABS: Alanine Aminotransferase 34 IU/L (<50); Albumin 4.3 g/dL (3.5-5.0); Albumin Globulin Ratio 1.3 (1.0-2.8); Alkaline Phosphatase 99 U/L (38-126); Aspartate Aminotransferase 31 IU/L (17-59); BUN Creatinine Ratio 22.7 (6-22); Bilirubin Total 1.7 mg/dL (0.2-1.3); Blood Urea Nitrogen 15 mg/dL (9-20); Calcium 9.4 mg/dL (8.4-10.2); Carbon Dioxide 29 mmol/L (22-32); Chloride 97 mmol/L (98-107); Estimated Glomerular Filt Rate > 60 mL/min (>60); Ethanol (ETOH) < 10 mg/dL; Globulin 3.4 g/dL (1.7-4.1); Glucose 361 mg/dL (70-100); HEMOLYSIS 23 (0-50); Lipase 135 U/L (23-300); Potassium 3.8 mmol/L (3.4-5.1); Sodium 134 mmol/L (137-145); Total Protein 7.7 g/dL (6.3-8.2)
[2023-01-04] MEDS: levETIRAcetam 1,000 MG in SODIUM CHLORIDE 0.9% 100 ML 440 MG IV (18:40)
[2023-01-04] MEDS: SODIUM CHLORIDE 0.9% 1,000 ML 1000 ML IV (18:53)
[2023-01-04 19:16] LABS: Ketones (Beta-Hydroxybutyrate) 0.04 mmol/L (<0.27)
[2023-01-04 19:52] LABS: UR Morphine/Opiate cutoff 300 Negative (Negative); Ur Creatinine Normal (Normal); Ur Specific Gravity Normal (Normal); Urine Amphetamines Negative (Negative); Urine Barbiturates Negative (Negative); Urine Benzodiazepines Negative (Negative); Urine Cocaine Negative (Negative); Urine MDMA Negative (Negative); Urine Methadone Negative (Negative); Urine Methamphetamines Negative (Negative); Urine Oxycodone Negative (Negative); Urine Phencyclidine Negative (Negative); Urine Tetrahydrocannabinol Positive (Negative); Urine Tricyclic Antidepressant Negative (Negative); Urine pH Normal (Normal)
[2023-01-04 20:08] LABS: COVID19 -Nasal RAPID Negative (Negative)
[2023-01-04 20:19] LABS: Bacteria Urine None Seen; Culture Indicated Urine Cult Not Indicated; RBC Urine None Seen (0-5/HPF); Squamous Epithelial Cell Urine None Seen (0-5/HPF); WBC Urine 0-1/HPF (0-5/HPF)
[2023-01-04] MEDS: MORPHINE 2 MG/ML INJ IV (20:23)
--- NOTE | 2023-01-04 23:37 | PC.NURSE ---
CHARGE ACCOUNT CLERK note: Attempting to transfer out patient. Called the following places w/ the following responses. [facility]- [address]. No beds unless or a child. Asked if patient was either, no. [facility]: [address]. Full. Boarding no room at the inn. [facility]: [address]. Full boarding in their ER. [facility]: [address]. Nothing open at the moment. Call back after 2300. Called back at 2330, left message.
[2023-01-05] VITALS (35 sets, daily range): BP systolic 110–167; BP diastolic 58–74; PULSE 51–101; RESP 9–34; O2SAT 92–98
[2023-01-05] MEDS: levETIRAcetam 250 MG TABLET 500 MG PO ×2 (05:11→16:34)
[2023-01-09 14:56] LABS: Lamotrigine Lamictal 4.1 ug/mL (2.0-20.0)
== END 2023-01-05 16:50 | disposition home or self-care (01) ==
PROVIDERS: Emergency Medicine; Emergency Provider Emergency Medicine
DX: R56.9 Unspecified convulsions (principal); R73.9 Hyperglycemia, unspecified; R03.1 Nonspecific low blood-pressure reading; Z20.822 Contact with and (suspected) exposure to COVID-19
CPT/HCPCS: 70450; 80053; 80175; 80305; 80320; 81015; 82009; 82550; 82962; 83690; 85025; 87635; 93005; 93010; 96365; 96375; 99284; C9803; J1953; J2270

== ENCOUNTER → 2023-10-27 15:39 | Outpatient (CLI) | payer BC, SELFPAY ==
[2023-10-27 18:02] LABS: Add Manual Diff / Slide Review NO; Basophils Absolute Auto 100 /uL (0-100); Eosinophils Absolute Auto 200 /uL (0-450); Eosinophils Percent Auto 1.7 % (2-4); Hematocrit 46.9 % (41-53); Hemoglobin 16.3 g/dL (13.5-17.5); Lymphocytes Absolute Auto 2900 /uL (1100-4500); Lymphocytes Percent Auto 29.1 % (25-40); Mean Corpuscular HGB Conc 34.7 % (30-36); Mean Corpuscular Hemoglobin 31.6 PG (26-34); Mean Corpuscular Volume 91.2 fL (80-100); Monocytes Absolute Auto 700 /uL (0-900); Monocytes Percent Auto 6.7 % (3-14); Neutrophils Absolute Auto 6000 /uL (1500-7000); Neutrophils Percent Auto 61.5 % (50-75); Platelet Count 257 X10^3/uL (150-400); Red Blood Cell Count 5.15 X10^6/uL (4.5-5.9); Red Cell Distribution Width 12.9 % (11.6-14.8); White Blood Cell Count 9.8 X10^3/uL (4.5-11.0)
[2023-10-27 18:15] LABS: Hemoglobin A1C% w Est Avg Glu 10.1 % (4.0-6.0)
[2023-10-27 18:25] LABS: Alanine Aminotransferase 32 IU/L (<50); Albumin 4.7 g/dL (3.5-5.0); Albumin Globulin Ratio 1.4 (1.0-2.8); Alkaline Phosphatase 89 U/L (38-126); Aspartate Aminotransferase 25 IU/L (17-59); BUN Creatinine Ratio 27.9 (6-22); Bilirubin Total 1.4 mg/dL (0.2-1.3); Blood Urea Nitrogen 17 mg/dL (9-20); Carbon Dioxide 25 mmol/L (22-32); Chloride 97 mmol/L (98-107); Cholesterol 303 mg/dL (140-199); Estimated Glomerular Filt Rate > 60 mL/min (>60); Globulin 3.4 g/dL (1.7-4.1); Glucose 238 mg/dL (70-100); HDL Cholesterol 64 mg/dL (40-60); HEMOLYSIS < 15 (0-50); LDL Cholesterol Calculated 180 mg/dL (<100); Sodium 134 mmol/L (137-145); Total Protein 8.1 g/dL (6.3-8.2); Triglycerides 296 mg/dL (35-150)
[2023-10-27 18:50] LABS: Thyroid Stimulating Hormone 0.583 uIU/mL (0.47-4.68)
== END ==
LOC: LAB 15:43
PROVIDERS: Referring Provider Family Medicine; Visit Provider Family Medicine
DX: Z13.0 Encounter for screening for diseases of the blood and blood-forming organs and certain disorders involving the immune mechanism (principal); E78.2 Mixed hyperlipidemia; F33.1 Major depressive disorder, recurrent, moderate; E11.65 Type 2 diabetes mellitus with hyperglycemia; G40.109 Localization-related (focal) (partial) symptomatic epilepsy and epileptic syndromes with simple partial seizures, not intractable, without status epilepticus; G47.33 Obstructive sleep apnea (adult) (pediatric); E78.00 Pure hypercholesterolemia, unspecified; Z80.0 Family history of malignant neoplasm of digestive organs
CPT/HCPCS: 36415; 80053; 80061; 83036; 84443; 85025

== ENCOUNTER 2023-12-09 19:24 | Emergency (ER) | payer BC, SELFPAY ==
[2023-12-09] VITALS (11 sets, daily range): BP systolic 121–143; BP diastolic 59–75; PULSE 81–96; RESP 7–25; TEMP 36.8; O2SAT 94–98; BMI 35.2
--- NOTE | 2023-12-09 19:38 | DI.RAD.S_ITS ---
PROCEDURE: XR CHEST 1V INDICATIONS: chest pain TECHNIQUE: One view of the chest was acquired. COMPARISON: [facility], , CHEST 1 VIEW, 05/24/2017, 12:35. FINDINGS: Surgical changes and devices: None. Lungs and pleura: Lungs are clear. No pleural effusions or pneumothorax. Mediastinum: Mediastinal contours appear normal. Heart size is normal. Bones and chest wall: No suspicious bony lesions. Overlying soft tissues appear unremarkable. IMPRESSION: No acute cardiopulmonary abnormality is seen. Dictated by: Jesus Rivas M.D. on 12/09/2023 at 20:42 Approved by: Jesus Rivas M.D. on 12/09/2023 at 20:42
[2023-12-09 20:06] LABS: Add Manual Diff / Slide Review NO; Basophils Absolute Auto 100 /uL (0-100); Basophils Percent Auto 0.9 % (0-2); Eosinophils Absolute Auto 200 /uL (0-450); Eosinophils Percent Auto 1.8 % (2-4); Hematocrit 43.3 % (41-53); Hemoglobin 15.2 g/dL (13.5-17.5); Lymphocytes Absolute Auto 2200 /uL (1100-4500); Lymphocytes Percent Auto 26.7 % (25-40); Mean Corpuscular HGB Conc 35.2 % (30-36); Mean Corpuscular Hemoglobin 32.3 PG (26-34); Mean Corpuscular Volume 91.9 fL (80-100); Monocytes Absolute Auto 600 /uL (0-900); Monocytes Percent Auto 7.8 % (3-14); Neutrophils Absolute Auto 5200 /uL (1500-7000); Neutrophils Percent Auto 62.8 % (50-75); Platelet Count 241 X10^3/uL (150-400); Red Blood Cell Count 4.71 X10^6/uL (4.5-5.9); Red Cell Distribution Width 12.8 % (11.6-14.8); White Blood Cell Count 8.3 X10^3/uL (4.5-11.0)
[2023-12-09 20:15] LABS: Alanine Aminotransferase 23 IU/L (<50); Albumin 4.3 g/dL (3.5-5.0); Albumin Globulin Ratio 1.3 (1.0-2.8); Alkaline Phosphatase 114 U/L (38-126); Aspartate Aminotransferase 22 IU/L (17-59); BUN Creatinine Ratio 29.4 (6-22); Bilirubin Total 1.1 mg/dL (0.2-1.3); Blood Urea Nitrogen 20 mg/dL (9-20); Calcium 9.9 mg/dL (8.4-10.2); Carbon Dioxide 26 mmol/L (22-32); Chloride 102 mmol/L (98-107); Creatine Kinase 85 U/L (55-170); Estimated Glomerular Filt Rate > 60 mL/min (>60); Globulin 3.2 g/dL (1.7-4.1); Glucose 329 mg/dL (70-100); HEMOLYSIS 16 (0-50); Lipase 178 U/L (23-300); Magnesium 1.8 mg/dL (1.6-2.3); Sodium 134 mmol/L (137-145); Total Protein 7.5 g/dL (6.3-8.2)
[2023-12-09 20:26] LABS: Troponin I < 0.012 ng/mL (0.01-0.034)
[2023-12-09] MEDS: ASPIRIN 81 MG CHEW TAB 324 MG PO (20:27)
[2023-12-09 20:36] LABS: INR 0.9 (0.9-1.3); Prothrombin Time 10.1 SECONDS (9.4-12.5)
[2023-12-09 20:39] LABS: PTT Partial Thromboplastin Tim 34 SECONDS (25.1-36.5)
--- NOTE | 2023-12-09 22:13 | ED.CHESTPAIN ---
HPI - Chest Pain General Chief Complaint: Chest Pain Stated Complaint: chest pains Time Seen by Provider: 12/09/23 22:12 Source: patient Mode of arrival: Ambulatory History of Present Illness HPI narrative: 43-year-old gentleman with a history of a seizure disorder, reflux, diabetes, depression and anxiety who presents specifically complaining that after he was working in his car this afternoon he was increasingly confused he was stumbling into the house increasingly diaphoretic. With further questioning over the last couple of weeks he and his both note that he has had increased malaise, he has not tracking as well he feels like his ADD is making him less focused, he was overall behavior has been off he complains that his aphasia has been worse both he and his noticed that he has been stumbling and more clumsy of late. He does not have any localizing neurologic symptoms. States that he has been taking his medications as prescribed. No recent fevers, cough, chills or other viral syndromes. He has seasonal allergies and a deviated septum and has a chronic sniff almost neurologic tick, no abdominal pain vomiting or diarrhea. Related Data Home Medications Medication Instructions Recorded Confirmed glimepiride 4 mg tablet (Amaryl) 4 mg PO QDAY ##0 05/24/17 06/27/22 omeprazole 20 mg capsule,delayed 20 mg PO QDAY ##0 05/24/17 06/27/22 release calcium carbonate 500 mg calcium 500 mg PO BID 09/14/18 06/27/22 (1,250 mg) tablet (Calcium 500) cholecalciferol (vitamin D3) 50 2,000 unit PO DAILY 09/14/18 06/27/22 mcg (2,000 unit) capsule citalopram 40 mg tablet (Celexa) 40 mg PO DAILY 09/14/18 06/27/22 lamotrigine 200 mg tablet 400 mg PO BID 09/14/18 06/27/22 Previous Rx's Medication Instructions Recorded levetiracetam 500 mg tablet 500 mg PO BID #60 tabs 01/05/23 (Keppra) Allergies Allergy/AdvReac Type Severity Reaction Status Date / Time amoxicillin [AMOXICILLIN] Allergy Unknown Verified 12/09/23 19:38 Review of Systems Review of Systems Narrative: Pertinent positive and negative findings as per HPI Patient History Medical History (Updated 12/10/23 @ 00:54 by Lroena Mcleod MD) ADD (attention deficit disorder) Depression Diabetes Hypertension Seizure Social History Smoking Status: Former smoker Smoking Status: Former smoker alcohol intake frequency: 0-2 drinks per day Substance Use Type: marijuana Exam Initial Vital Signs Initial Vital Signs: Vital Signs Temperature 98.2 F 12/09/23 19:33 Pulse Rate 93 H 12/09/23 19:33 Respiratory Rate 16 12/09/23 19:33 Blood Pressure 143/69 H 12/09/23 19:33 Pulse Oximetry 96 12/09/23 19:33 Oxygen Delivery Method Room Air 12/09/23 19:33 General: Healthy appearing, in no acute distress. He is slightly confused and tangential but can refocus. HEENT: Moist mucous membranes, mildly injected sclera with reactive pupils, Respiratory: Lungs are clear to auscultation, no wheezing no rales no rhonchi. Full and symmetrical air movement Cardiac: Regular rate and rhythm no murmurs no bruits Abdomen: Soft, nontender, good bowel tones, no flank pain Skin: Warm and dry, no rashes Neurologic: Grossly neurologically intact with no obvious asymmetries or abnormalities, does seem to have some mild cognitive slowing that was initially felt to be postictal but it is not clearing and there was no obvious seizure Extremities: No trauma, well perfused Psych: Cooperative, appropriate insight and affect Course Orders Ordered: ED Orders 12/09/23 19:38 XR chest 1V Stat EKG-12 Lead Stat 12/09/23 19:55 Complete Blood Count AUTO DIFF Stat Comprehensive Metabolic Panel Stat Lipase Stat Magnesium Stat PTT Partial Thromboplastin Viral Stat Prothrombin Time INR Stat Troponin & CK Cardiac Panel Stat 12/09/23 22:30 Trop I [Troponin I] Stat 12/09/23 23:39 CT head/brain wo con Stat Discontinued Medications Aspirin (Aspirin 81 Mg Chew Tab) 324 mg PO NOW ONE Stop: 12/09/23 19:39 Last Admin: 12/09/23 20:27 Dose: 324 mg Documented By: AB Vital Signs Vital signs: Vital Signs - 8 hr 12/09/23 19:33 12/09/23 20:05 12/09/23 20:06 Temperature 98.2 F Pulse Rate 93 H Respiratory Rate 16 Blood Pressure 143/69 H 140/68 Pulse Oximetry 96 97 Oxygen Delivery Method Room Air 12/09/23 20:06 12/09/23 20:30 12/09/23 20:30 Temperature Pulse Rate 92 H 93 H Respiratory Rate 18 19 Blood Pressure 127/72 Pulse Oximetry 97 98 Oxygen Delivery Method Room Air 12/09/23 21:00 12/09/23 21:00 12/09/23 21:30 Temperature Pulse Rate 96 H Respiratory Rate 22 Blood Pressure 134/72 126/61 Pulse Oximetry 96 Oxygen Delivery Method Room Air 12/09/23 21:30 12/09/23 22:00 12/09/23 22:00 Temperature Pulse Rate 88 90 Respiratory Rate 13 17 Blood Pressure 130/68 Pulse Oximetry 96 94 Oxygen Delivery Method Room Air 12/09/23 22:00 12/09/23 22:30 12/09/23 22:30 Temperature Pulse Rate 90 85 Respiratory Rate 17 23 Blood Pressure 123/59 L Pulse Oximetry 94 94 Oxygen Delivery Method Room Air 12/09/23 22:59 12/09/23 23:00 12/09/23 23:00 Temperature Pulse Rate 82 81 Respiratory Rate 7 L Blood Pressure 121/65 Pulse Oximetry 94 94 Oxygen Delivery Method Room Air Room Air 12/09/23 23:30 12/09/23 23:30 12/10/23 00:00 Temperature Pulse Rate 83 77 Respiratory Rate 25 H 27 H Blood Pressure 134/75 Pulse Oximetry 95 98 Oxygen Delivery Method Room Air Room Air 12/10/23 00:11 12/10/23 00:12 Temperature Pulse Rate 85 Respiratory Rate Blood Pressure 118/57 L Pulse Oximetry 99 Oxygen Delivery Method Room Air MDM - Chest Pain Lab Data 12/09/23 19:55 12/09/23 19:55 Labs: Lab Results 12/09/23 12/09/23 Range/Units 19:55 22:30 WBC 8.3 (4.5-11.0) X10^3/uL RBC 4.71 (4.5-5.9) X10^6/uL Hgb 15.2 (13.5-17.5) g/dL Hct 43.3 (41-53) % MCV 91.9 (80-100) fL MCH 32.3 (26-34) PG MCHC 35.2 (30-36) % RDW 12.8 (11.6-14.8) % Plt Count 241 (150-400) X10^3/uL Neut % (Auto) 62.8 (50-75) % Lymph % (Auto) 26.7 (25-40) % Wythe % (Auto) 7.8 (3-14) % Eos % (Auto) 1.8 L (2-4) % Baso % (Auto) 0.9 (0-2) % Neut # (Auto) 5200 (2318-8994) /uL Lymph # (Auto) 2200 (6212-0515) /uL Wythe # (Auto) 600 (0-900) /uL Eos # (Auto) 200 (0-450) /uL Baso # (Auto) 100 (0-100) /uL PT 10.1 (9.4-12.5) SECONDS INR 0.9 (0.9-1.3) APTT 34 (25.1-36.5) SECONDS Sodium 134 L (137-145) mmol/L Potassium 4.0 (3.4-5.1) mmol/L Chloride 102 (98-107) mmol/L Carbon Dioxide 26 (22-32) mmol/L BUN 20 (9-20) mg/dL Creatinine 0.68 (0.66-1.25) mg/dL Estimated GFR > 60 (>60) mL/min BUN/Creatinine Ratio 29.4 H (6-22) Glucose 329 H (70-100) mg/dL Calcium 9.9 (8.4-10.2) mg/dL Magnesium 1.8 (1.6-2.3) mg/dL Total Bilirubin 1.1 (0.2-1.3) mg/dL AST 22 (17-59) IU/L ALT 23 (<50) IU/L Alkaline Phosphatase 114 (38-126) U/L Total Creatine Kinase 85 (55-170) U/L Troponin I < 0.012 < 0.012 (0.01-0.034) ng/mL Total Protein 7.5 (6.3-8.2) g/dL Albumin 4.3 (3.5-5.0) g/dL Globulin 3.2 (1.7-4.1) g/dL Albumin/Globulin Ratio 1.3 (1.0-2.8) Lipase 178 (23-300) U/L MDM Narrative Medical decision making narrative: CC: Confusion with behavioral changes Complicating co-morbidities: Seizure disorder, hypertension, diabetes, depression Data collected from: patient, partner Differential considered: Viral syndrome, seizure with postictal behavior, intracranial mass Exam documented above, pertinent findings include: No specific localizing symptoms but patient does seem slightly confused and overall slowed Lab Test results independently reviewed as above. Pertinent findings: CBC is unremarkable Chemistries are reassuring Initial troponin is nondetectable Independently reviewed EKG: Sinus rhythm at a rate of 87, normal intervals, normal axis. No acute ischemic changes Imaging studies independently reviewed: Chest x-ray is unremarkable CT head is unremarkable Re-evaluations: Reviewed lab studies and CT scans with the patient. He actually seems to be doing a bit better at this time certainly much more alert. Discussion: 43-year-old gentleman with nonspecific complaints of malaise and then had episode of confusion with diaphoresis after he was working outside in his car today. Workup is reassuring and not seeing signs of significant infection, there was no evidence of acute stroke, brain tumor, significant sinusitis or alternate explanation that would suggest the need for hospitalization or additional imaging. All findings reviewed with him questions are answered and he is safe for discharge Discharge Plan Departure Patient Disposition: Home Clinical Impression: Acute confusion Activity Restrictions/Additional Instructions: Thank you for coming in today I agree that your symptoms do sound concerning. Fortunately, your workup in the emergency department was very reassuring. I do not see signs of significant infection, sepsis, meningitis, heart attack or heart attack like syndrome. Your electrolytes kidney function and liver function all look normal. We did do a CT scan of your brain that shows no evidence of tumors, masses or sinus infections Unfortunately, sometimes the best I am able to do from the emergency department as tell you all of the things that you do not. I do believe it is safe for you to go home this evening. You will need to follow up with your primary care doctor to continue to see if we can figure out what actually is causing your overall symptoms. If you find that you are getting worse or develop any new symptoms, please feel free to return to the emergency department for further evaluation. Prescriptions: No Action lamotrigine 200 mg tablet 400 mg PO BID citalopram [Celexa] 40 mg tablet 40 mg PO DAILY cholecalciferol (vitamin D3) 2,000 unit capsule 2,000 unit PO DAILY calcium carbonate [Calcium 500] 500 mg calcium (1,250 mg) tablet 500 mg PO BID glimepiride [Amaryl] 4 MG tablet 4 mg PO QDAY Qty: 0 omeprazole 20 MG capsule,delayed release(DR/EC) 20 mg PO QDAY Qty: 0 levetiracetam [Keppra] 500 mg tablet 500 mg PO BID Qty: 60 0RF Referrals: Miscellaneous,Doctor, MD [Primary Care Provider] - Stand Alone Forms: Patient Portal/API
[2023-12-09 23:01] LABS: Troponin I < 0.012 ng/mL (0.01-0.034)
--- NOTE | 2023-12-09 23:39 | DI.CT.S_ITS ---
PROCEDURE: CT HEAD/BRAIN WO CON INDICATIONS: Altered mental status TECHNIQUE: Noncontrast 4.5 mm thick angled axial sections acquired from the foramen magnum to the vertex, with coronal and sagittal reformats. For radiation dose reduction, the following was used: automated exposure control, adjustment of mA and/or kV according to patient size. COMPARISON: [facility], CT, CT HEAD/BRAIN WO CON, 01/04/2023, 18:16. [facility], CT, HEAD WITHOUT CONTRAST, 05/24/2017, 13:16. FINDINGS: Image quality: Diagnostic. CSF spaces: Basal cisterns are patent. No extra-axial fluid collections. Ventricles are normal in size and shape. Brain: No midline shift. No intracranial masses or hemorrhage. Barkley-white matter interface is normal. Skull and face: Calvarium and visualized facial bones are intact, without suspicious lesions. Sinuses: Visualized sinuses and mastoids are clear. IMPRESSION: No acute intracranial pathology. Dictated by: Jesus Rivas M.D. on 12/10/2023 at 0:14 Approved by: Jesus Rivas M.D. on 12/10/2023 at 0:15
[2023-12-10] VITALS: PULSE 77; RESP 27; O2SAT 98
[2023-12-10 00:11] VITALS: PULSE 85; O2SAT 99
[2023-12-10 00:12] VITALS: BP 118/57; PULSE 78; RESP 24; O2SAT 98
[2023-12-10 00:30] VITALS: BP 114/77; PULSE 79; RESP 17; O2SAT 96
== END 2023-12-10 01:01 | disposition home or self-care (01) ==
PROVIDERS: Emergency Provider Emergency Medicine
DX: R41.0 Disorientation, unspecified (principal); R07.9 Chest pain, unspecified
CPT/HCPCS: 36415; 70450; 71045; 80053; 82550; 83690; 83735; 84484; 85025; 85610; 85730; 93005; 93010; 99284

== ENCOUNTER → 2025-08-15 08:17 | Outpatient (CLI) | payer OTHER, SELFPAY ==
--- NOTE | 2025-08-15 08:19 | DI.RAD.S_ITS ---
PROCEDURE: XR FINGER LT MIN 2V INDICATIONS: r/o fracture, thumb slammed in door TECHNIQUE: AP hand, 2 views of the 1st finger(s) acquired. COMPARISON: None. FINDINGS: Bones: No fractures or dislocations. No suspicious bony lesions. Soft tissues: No suspicious soft tissue calcifications. IMPRESSION: No acute osseous abnormality. If pain persists with conservative management, consider repeat x-ray in 10-14 days or cross-sectional imaging. Dictated by: Patrick Irving M.D. on 08/16/2025 at 13:46 Approved by: Patrick Ivring M.D. on 08/16/2025 at 13:46
== END ==
LOC: RAD 08:18
PROVIDERS: Referring Provider Nurse Practitioner Family; Visit Provider Nurse Practitioner Family
DX: M79.645 Pain in left finger(s) (principal)
CPT/HCPCS: 73140

== ENCOUNTER 2025-09-23 09:14 | Emergency (ER) | payer OTHER, SELFPAY ==
--- OUTSIDE RECORDS SUMMARY | 2025-09-08 03:41 | XMS_ITS | Continuity of Care Document ---
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 Name Role Phone Katelin Morse Primary Care Provider Katelin Morse Attending Provider [phone] Katelin Morse Referring Provider Care Teams Patient Care Team Team Status: Active Member Role/Relationship Status Dates ASHOK Weinstein Primary Care Provider Active Patient Care Team Team Status: Inactive Member Role/Relationship Status Dates ASHOK Weinstein Primary Care Provider Active Start: September 08, 2025 End: September 08, 2025 ASHOK Weinstein Attending Provider Active St art: September 08, 2025 End: September 08, 2025 ASHOK Weinstein Referring Provider Active St art: September 08, 2025 End: September 08, 2025 Chief Complaint and Reason for Visit Chief Complaint Admit Date Establish care/ New pt visit September 082024 9:37am Reason for Visit Admit Date ADHD September 08, 2025 9:37am Aphasia September 08, 2025 9:37am Depression with anxiety September 08, 025 9:37am Epilepsy September 08, 2025 9:37am Hypertriglyceridemia September 08, 2025 9:37am Type II diabetes mellitus September 08, 2025 9:37am Vitamin D deficiency September 08, 2025 9:37am Reason for Referral Type Reason(s) Provider Provider Contac t Information Provider Address Start Date Epilepsy G40.909 - Epilepsy, unspecified, not intractable, without status epilepticus Attention deficit hyperactivity disorder (ADHD) F90.9 - Attention-deficit hyperactivity disorder, unspecified type Attention deficit hyperactivity disorder (ADHD) Anxiety with depression Aphasia Epilepsy G40.909 - Epilepsy, unspecified, not intractable, without status epilepticus Insurance to determine September 08, 2025 F90.9 - Attention-deficit hyperactivity disorder, unspecified type Insurance to determine September 08, 2025 F90.9 - Attention-deficit hyperactivity disorder, unspecified type,F41.8 - Other specified anxiety disorders,R47.01 - Aphasia,G40.909 - Epilepsy, unspecified, not intractable, without status epilepticus [facility] [address] [facility] [address] September 08, 2025 Allergies, Adverse Reactions, Alerts Allergen Type Severity Reaction Last Updated Verified Status Comments prednisone Allergy Severe hyper September 08, 2025 9:50am Yes Active agitation/mo catherine levetiracetam Adverse Reaction Severe Unknown September 08, 2025 9:50am Yes Active did not feel well on it Social History Smoking Status Status Start Date End Date Date of Observa tion Ex-smoker (finding) September 08, 2025 9:47am Observation Status Observation Response Date of Response Living arrangement At home August 9:54am Living Situation With spouse/s.o. September 08, 2025 9:54am ETOH Use Beer September 08, 2 025 9:54am Psychiatric Anxiety May 21 1:33am ADD/ADHD May 21 1:33am Legal Sex Male Sex Assigned At Male [birth year], 1 980 Family History Relationship Condition Age at Onset Recorded Date/T samson cousin Obesity Unknown uncle Diabetes mellitus Unknown Coronary artery disease Unknown Neoplasm Unknown grandmother Neoplasm Unknown Problems Active Problems Problem Diagnosis/Recorded Date Onset Date Status C omments Depression with anxiety September 04, 2024 4:55pm Unknown Active Screening for prostate cancer September 08, 2025 10:46am Unknown Active Epilepsy September 08, 2025 10:42am Unknown Active Aphasia September 08, 2025 10:44am Unknown Active Type II diabetes mellitus September 04, 2024 4:54pm Unkno wn Active Hypertriglyceridemia September 04, 2024 4:56pm Unknown Active Seasonal allergies September 04, 2024 4:55pm Unknown A ctive Hyperlipidemia September 04, 2024 4:58pm Unknown Activ e Long-term use of high-risk medication September 04, 2024 4:54pm Unknown Active ADHD September 08, 2025 10:42am Unknown Active Vitamin D deficiency September 08, 2025 10:41am Unknown Active Obesity September 04, 2024 4:56pm Unknown Active Inactive/Resolved Problems Problem Diagnosis/Recorded Date Onset Date Status C omments Tendinitis of thumb December 20, 2023 7:32am Unknown Res olved Tendinitis of right forearm December 08, 2024 5:36pm Unknown Resolved De Quervain's tenosynovitis, right September 04, 2024 4:55pm Unknown Resolved right thumb and wrist Epilepsy August 14, 2021 9:43pm Unknown Resolved Temporal lobe seizure August 28, 2024 4:44pm Unknown Resolved Overuse injury December 20, 2023 7:32am Unknown Resolved Plantar fasciitis, bilateral September 04, 2024 4:56pm Unknown Resolved Post viral syndrome August 28, 2024 4:44pm Unknown R esolved Hyperglycemia August 28, 2024 4:50pm Unknown Resolve d Seizure disorder August 28, 2024 4:44pm Unknown Reso lved Seizure May 19, 2024 8:22pm Unknown Resolved History of seizure disorder August 28, 2024 2:49pm Unknown Resolved History of diabetes mellitus August 28, 2024 2:48pm Unknown Resolved Puncture wound of hand, left September 11, 2024 3:51pm Unknown Resolved Strain of thumb, right December 20, 2023 7:32am Unknown Resolved Medications Medication Status Dose Units Route Directions Qty Days Refills S tart Date Stop Date End Date Reason(s) Instructions Adherence Lamotrigine 200 mg tablet Discont inued 200 MG PO TWICE A DAY 60 2 Dece er 2023 12:00a m Dece ines 2023 2:05p m Lamotrigine 200 mg tablet Discont inued 200 MG PO TWICE A DAY 180 3 Sepuar y 2024 10:37a m Febru moises 2024 3:47p m Take in addition to Lamotrigine 25mg BID Citalopram 40 MG tablet Active 40 MG PO DAILY Novemb er 2020 12:00a m Complies with drug therapy Methylpheni date Hcl 5 MG tablet Discont inued 5 MG PO TWICE A DAY Novemb er 2020 12:00a m December 20, 2023 6:49a m Acarbose (Precose) 50 MG tablet Discont inued 50 MG PO THREE TIMES A DAY Novemb er 2020 12:00a m December 20, 2023 6:49a m Glimepiride (Amaryl) 4 MG tablet Discont inued 4 MG PO DAILY Novem er 2020 12:00a m Dece ines 2023 2:05p m Lamotrigine (Lamictal Xr) 200 MG tablet extended release 24hr Discont inued 200 MG PO TWICE A DAY [facility] er 2020 12:00a m Dece ines 2023 4:22p m Glimepiride (Amaryl) 4 mg tablet Active 8 MG PO DAILY [facility] er 2023 2:03pm Complies with drug therapy Prednisone 10 MG tablet Discont inued 10 MG PO 10 DAY TAPER 42 0 December 19, 2023 11:00p m Dece ines 2023 2:00p m Day 1-4: Take 60mg (6 tablets) daily; Day 5-7: Take 40mg (4 tablets) daily; Day 8-10: Take 20mg (2 tablets) daily Lamotrigine 25 mg tablet Discont inued 25 MG PO TWICE A DAY 60 30 0 [facility] er 2023 12:00a m Dece ines 2023 2:05p m Temporal lobe epilepsy Meloxicam 7.5 mg tablet Discont inued 7.5 MG PO TWICE A DAY 20 1 December 07, 2024 11:00p m Dece ines 2024 9:52a m Tendinitis of right forearm Other enthesopat hies, not elsewhere classified Empaglifloz in (Jardiance) 10 mg tablet Discont inued 10 MG PO every day [facility] er 2023 12:00a m [facility] ines 2023 10:25 am Cholecalcif dionne (Vitamin D3) 50 mcg (2,000 unit) capsule Active 100 MCG PO every day [facility] er 2023 12:00a m Complies with drug therapy Lamotrigine 200 mg tablet Discont inued 200 MG PO TWICE A DAY 180 0 [facility] er 2023 12:00a m Dece ines 2023 6:36p m Lamotrigine 25 mg tablet Discont inued 25 MG PO TWICE A DAY 180 90 3 Dece er 2023 12:00a m Decem ines 2024 10:58 am Take in addition to Lamotrigine 200mg twice daily. Lamotrigine 200 mg tablet Discont inued 200 MG PO TWICE A DAY 180 0 [facility] er 2023 6:35pm Janua ry 2024 10:39 am Take in addition to Lamotrigine 25mg BID Lamotrigine 200 mg tablet Discont inued 400 MG PO TWICE A DAY Februa ry 2024 3:47pm Decem ines 2024 9:52a m Take in addition to Lamotrigine 25mg BID Lamotrigine 200 mg tablet Active 400 MG PO TWICE A DAY Dece er 2024 9:52am Complies with drug therapy Immunizations Immunization Event Date Not Given Reason Dose Number Lathe Tender Lot Number Reason(s) Given Vaccine Information Statement (VIS) Detail Administration Location COVID-19 (MODERNA) December 11, 2020 COVID-19 (MODERNA) January 08, 2021 Hepatitis B, Recombinant, Adjuvanted [facility] er 2023 Pneumococcal Polysaccharid e Septem ines 2017 Influenza, Quadrivalent, MDCK, PF Sepuar y 2019 Influenza, Quadrivalent, PF Septem ines 2020 Influenza, Quadrivalent, PF Octobe r 2022 Tetanus-Dipth eria-Pertussi s February 14, 2017 Tetanus-Dipth eria-Pertussi s [facility] er 2023 [id number] [facility] Vital Signs Vital Reading Result Reference Range Collection Date/Time Height 60 [in_i] September 08, 2025 9:55am Weight 102.51 kg September 08, 2025 9:55am Heart Rate 90 /min 60-100 September 08, 2025 9:55am Respiratory rate 18 /min 12-24 September 082024 9:55am Oxygen saturation by Pulse oximetry 98 % 92-100 September 08, 2025 9:55am BP Systolic 121 mm[Hg] 90-130 September 08, 2025 9:55am BP Diastolic 68 mm[Hg] 60-90 September 08, 2025 9:55am BMI (Body Mass Index) 44.4 kg/m2 [facility] er 2024 9:55am Advance Directives Advance Directive Response Recorded Date/ Time Advance Directives No December 19 7:13am Advance Directives Information Provided No December 20, 2023 7:13am Insurance Providers Guarantor MALLORIE LEWIS Address [address] [facility] [address] Contact Info. Home Phone: Coverage Status Update:2025 Payer Group Member ID Coverage Type Subscriber Relationship to Subscriber Effective Date Expiration Date [facility] [id number] null MALLORIE LEWIS Id: [id number] 01 [address] [facility] [address] Home Phone: Email: [email or web address] [address] [place] [id number] 5WA null MALLORIE LEWIS Id: [id number] [address] [facility] [address] Home Phone: Email: [email or web address] Encounters Encounter Location(s) Arrival/Admit Date Discharge/Departure Date Discharge/Departure Disposition Provider(s) Departed Physician/ Provider Office Visit -[facility] September 08, 2025 9:37am September 08, 2025 11:39am Discharged to home care or self care (routine discharge) ASHOK Weinstein Recent Diagnosis Onset Date Admit Date ADHD Unknown September 08, 9:37am Aphasia Unknown September 08 9:37am Depression with anxiety Unknown September 08, 2025 9:37am Epilepsy Unknown September 08 9:37am Hypertriglyceridemia Unknown September 082024 9:37am Type II diabetes mellitus Unknown Decemb er 2024 9:37am Vitamin D deficiency Unknown September 082024 9:37am Assessments Diagnosis Onset Date Resolution Status Admit Date ADHD acute September 08, 2025 9:37am Aphasia acute September 08, 2025 9:37am Depression with anxiety acute D ecember 2024 9:37am Epilepsy acute September 08, 2025 9:37am Hypertriglyceridemia acute Dece mber 2024 9:37am Type II diabetes mellitus acute September 08, 2025 9:37am Vitamin D deficiency acute Dece mber 2024 9:37am Plan of Treatment Author Katelin Morse [facility] Authored September 08, 2025 11:14am Diagnosis: Epilepsy Assessment: Patient has uncontrolled epilepsy with both convulsive and partial seizures occurring regularly despite lamotrigine therapy. Plan: We will clarify patient current lamotrigine dose, patient will call with/reported dose of medication-will cont this dose at this time. We will obtain lamotrigine level on labs and with these make recommendation for further interim treatment pending follow-up with neurology. Referral for neurology consult placed and patient instructed in scheduling this. Safety precautions and ED precautions reviewed in detail and all questions were answered Type 2 Diabetes Mellitus Assessment: Patient has improved glycemic control with intentional weight loss but previous A1C was elevated at 8.7. Plan: Continue glimepiride 4 mg daily. Order labs including A1C, complete metabolic panel to assess kidney function, lipid panel, and urinalysis with microalbumin creatinine ratio. Encourage continued weight loss efforts and hydration. Depression Assessment: Patient reports minimal current depressive symptoms, primarily situational related to seizure-related functional limitations. Plan: Continue citalopram 20 mg daily. Discussed that medication should not be stopped suddenly and would require slow taper if discontinuation desired in future. Recommend continuing current therapy given chronic health conditions and potential benefit. Refer to counseling for cognitive behavioral therapy if available ADHD Assessment: Patient reports increased ADHD symptoms with improved health and weight loss. Plan: Defer stimulant medication due to risk of increasing seizure frequency. Neurology consultation will provide recommendations regarding appropriateness of ADHD treatment. Neuropsychology evaluation recommended for diagnostic clarification and treatment recommendations. Refer to cognitive behavioral therapy for non-pharmacologic management strategies. Deviated Septum Assessment: Patient has deviated septum with mild symptoms, no complications. Plan: Conservative management. Recommend nasal saline rinses, cool mist humidifier with distilled water at bedside, and [id number] Flonase or Nasacort as needed. Monitor for development of recurrent sinus infections or worsening symptoms. Surgical correction deferred at this time. Preventative care. Patient requests PSA level to be completed on upcoming labs. Education regarding potential benefits risks and limitations of this test reviewed and all questions answered. Patient instructed to complete when he has abstained from sexual activity for 48 hours prior test to improve accuracy results. Pt well appearing at presentation; no red flag sx or findings, vs grossly wnl Discussed pt concerns in detail. Given hx, sx, and PE advised for further workup/referral as per tx and pt amendable to this. Orders given w/ instructions for completion. Pending results have advised for continued /adjusted tx as above and details of this reviewed/all questions answered. Will rx for approp rx refills when due-pt will advise at least 2w before refill needed; Advised pt in appropriate use of medication, monitoring w/ use, potential risks/benefits, side effects, safety and storage considerations discussed and pt was instructed when to seek care if concerning issues rt rx use develop. We have discussed potential red flag sx rt current/ongoing health issues and when to seek immediate emergent care for these. We have reviewed benefits of preventative care and strongly encourage these and have advised resources to facilitate access to preventative care/health maintenance. Strongly advise ongoing fu pcp re preventative care and chronic health issues Otherwise advise implementing above and plan to fu in next available Fu sooner if new/worsened or unresolved issues ED precautions have been reviewed and stressed, all questions answered Greater than 40min spent in direct face to face patient contact and in review of pertinent records, coordination of care and health counseling. Future Tests Future scheduled test information is unavailable Pending Tests Test Name Ordered Date Scheduled Date LAMOTRIGINE (LAMICTAL) September 08, 2025 10:42 am VITAMIN D 25-HYDROXY September 08, 2025 10:42am CBC - COMP BLD CT W/AUTO DIFF September 08 10:42am COMPREHENSIVE METABOLIC PANEL September 08 10:42am MICROALBUMIN CREAT RATIO September 08, 2025 10: 42am Future Visits Future appointment information is unavailable Future Procedures Procedure Name Ordered Date Scheduled Date HEMOGLOBIN A1c% September 08, 2025 10:42am LIPID Panel September 08, 2025 10:42am PSA SCREEN (Z12.5) September 08, 2025 10:42am TSH WITH REFLEX TO FT4 September 08, 2025 10:42 am URINALYSIS W/REFLEX TO CULTURE September 08 10:42am Future Medications Future medication information is unavailable Patient Instructions Patient instructions are unavailable Hospital Discharge Instructions Ambulatory Orders* Referral - Neurology Time Frame: 09/08/25, Location: None Selected * Referral - Neuropsychology Time Frame: 09/08/25, Location: None Selected * Referral - BH Psychotherapy Location: None Selected Progress Note Author Katelin Morse [facility] Note Date/Time September 08, 2025 11:14am [facility] [address] [place], [address] Date of service: 09/08/25 PATIENT: MALLORIE LEWIS PREFERRED NAME: PRONOUNS: MEDICAL RECORD#: [id number] DATE OF : 1980 cc: Katelin Morse CONDUCTOR ORCHESTRAUzair Morse [facility] report # [id number] Assessment & Plan Assessment & Plan (1) Depression with anxiety: Code(s): F41.8 - Other specified anxiety disorders (2) Hypertriglyceridemia: Code(s): E78.1 - Pure hyperglyceridemia (3) Type II diabetes mellitus: Code(s): E11.9 - Type 2 diabetes mellitus without complications Qualifiers: Diabetes mellitus nursing home insulin use: without long term care administrator use Diabetesmellitus complication status: without complication Qualified Code(s): E11.9 - Type 2 diabetes mellitus without complications (4) Vitamin D deficiency: Code(s): E55.9 - Vitamin D deficiency, unspecified (5) Epilepsy: Code(s): G40.909 - Epilepsy, unspecified, not intractable, without status epilepticus Qualifiers: Epilepsy type: other Intractability: intractable Status epilepticus: without status epilepticus Qualified Code(s): G40.804 - Other epilepsy, intractable, without status epilepticus (6) ADHD: Code(s): F90.9 - Attention-deficit hyperactivity disorder, unspecified type Qualifiers: Attention deficit-hyperactivity disorder type: unspecified Qualified Code(s): F90.9 - Attention-deficit hyperactivity disorder, unspecified type (7) Aphasia: Code(s): R47.01 - Aphasia Plan Diagnosis: Epilepsy Assessment: Patient has uncontrolled epilepsy with both convulsive and partial seizures occurring regularly despite lamotrigine therapy. Plan: We will clarify patient current lamotrigine dose, patient will call with/reported dose of medication-will cont this dose at this time. We will obtain lamotrigine level on labs and with these make recommendation for further interim treatment pending follow-up with neurology. Referral for neurology consult placed and patient instructed in scheduling this. Safety precautions and ED precautions reviewed in detail and all questions were answered Type 2 Diabetes Mellitus Assessment: Patient has improved glycemic control with intentional weight loss but previous A1C was elevated at 8.7. Plan: Continue glimepiride 4 mg daily. Order labs including A1C, complete metabolic panel to assess kidney function, lipid panel, and urinalysis with microalbumin creatinine ratio. Encourage continued weight loss efforts and hydration. Depression Assessment: Patient reports minimal current depressive symptoms, primarily situational related to seizure-related functional limitations. Plan: Continue citalopram 20 mg daily. Discussed that medication should not be stoppedsuddenly and would require slow taper if discontinuation desired in future. Recommend continuing current therapy given chronic health conditions and potential benefit. Refer to counseling for cognitive behavioral therapy if available ADHD Assessment: Patient reports increased ADHD symptoms with improved health and weight loss. Plan: Defer stimulant medication due to risk of increasing seizure frequency. Neurology consultation will provide recommendations regarding appropriateness ofADHD treatment. Neuropsychology evaluation recommended for diagnostic clarification and treatment recommendations. Refer to cognitive behavioral therapy for non-pharmacologic management strategies. Deviated Septum Assessment: Patient has deviated septum with mild symptoms, no complications. Plan: Conservative management. Recommend nasal saline rinses, cool mist humidifier with distilled water at bedside, and [id number] Flonase or Nasacort as needed. Monitor for development of recurrent sinus infections or worsening symptoms. Surgical correction deferred at this time. Preventative care. Patient requests PSA level to be completed on upcoming labs. Education regarding potential benefits risks and limitations of this test reviewed and all questions answered. Patient instructed to complete when he has abstained from sexual activity for 48 hours prior test to improve accuracy results. Pt well appearing at presentation; no red flag sx or findings, vs grossly wnl Discussed pt concerns in detail. Given hx, sx, and PE advised for further workup/referral as per tx and pt amendable to this. Orders given w/ instructions for completion. Pending results have advised for continued /adjusted tx as above and details of this reviewed/all questions answered. Will rx for approp rx refills when due-pt will advise at least 2w before refill needed; Advised pt in appropriate use of medication, monitoring w/ use, potential risks/benefits, side effects, safety and storage considerations discussed and pt was instructed when to seek care if concerning issues rt rx usedevelop. We have discussed potential red flag sx rt current/ongoing health issues and when to seek immediate emergent care for these. We have reviewed benefits of preventative care and strongly encourage these and have advised resources to facilitate access to preventative care/health maintenance. Strongly advise ongoing fu pcp re preventative care and chronic health issues Otherwise advise implementing above and plan to fu in next available Fu sooner if new/worsened or unresolved issues ED precautions have been reviewed and stressed, all questions answered Greater than 40min spent in direct face to face patient contact and in review of pertinent records, coordination of care and health counseling. Patient Instructions: Discharge Instructions/Discharge Summary: Labs ordered including PSA (per request) complete blood count, complete metabolic panel, lipid panel, A1C, thyroid stimulating hormone, urinalysis, microalbumin creatinine ratio, and lamotrigine level, vit d level. Patient should complete labs as soon as possible while fasting for 12 hours, drinking plenty of water. Labs can be done at hospital or walk-in clinic on [facility] without appointment. Referrals placed for neurology, neuropsychology evaluation,and cognitive behavioral therapy. Patient should expect contact within four weeks regarding referrals. Patient to schedule follow-up appointment for lab review and medication management. If severe symptoms develop, patient instructedto call 911 for emergencies including seizures lasting longer than five minutes.For non-emergent concerns before scheduled follow-up, patient should reach out to clinic or utilize walk-in clinic. Records release to be signed to obtain colonoscopy results from earlier this year. Abstain from sexual activity for 48 hours prior to PSA testing if ordered. Patient encouraged to continue weight loss efforts and hydration. Orders: Orders 2 LAMOTRIGINE (LAMICTAL) Today G40.909 - Epilepsy, unspecified, not intractable, without status epilepticus CBC - COMP BLD CT W/AUTO DIFF Today E11.9 - Type 2 diabetes mellitus without complications, Z00.00 - Encounter for general adult medical examination without abnormal findings TSH WITH REFLEX TO FT4 Today E11.9 - Type 2 diabetes mellitus without complications, Z00.00 - Encounter for general adult medical examination without abnormal findings PSA SCREEN (Z12.5) Today Z12.5 - Encounter for screening for malignant neoplasmof prostate COMPREHENSIVE METABOLIC PANEL Today E11.9 - Type 2 diabetes mellitus without complications, Z00.00 - Encounter for general adult medical examination without abnormal findings LIPID Panel Today E11.9 - Type 2 diabetes mellitus without complications, Z00.00 - Encounter for general adult medical examination without abnormal findings HEMOGLOBIN A1c% Today E11.9 - Type 2 diabetes mellitus without complications, Z00.00 - Encounter for general adult medical examination without abnormal findings URINALYSIS W/REFLEX TO CULTURE Today E11.9 - Type 2 diabetes mellitus without complications, N45.3 - Epididymo-orchitis MICROALBUMIN CREAT RATIO Today E11.9 - Type 2 diabetes mellitus without complications VITAMIN D 25-HYDROXY Today E55.9 - Vitamin D deficiency, unspecified Referrals 2 Referral - Neurology G40.909 - Epilepsy, unspecified, not intractable, withoutstatus epilepticus Referral - Neuropsychology F90.9 - Attention-deficit hyperactivity disorder, unspecified type Referral - Psychotherapy F41.8 - Other specified anxiety disorders, F90.9 -Attention-deficit hyperactivity disorder, unspecified type, G40.909 - Epilepsy, unspecified, not intractable, without status epilepticus, R47.01 - Aphasia Medications: Discontinued 2 lamotrigine Take in addition to Lamotrigine 200mg twice daily. Discontinued Reason: Completion of Therapy 25 mg PO BID 90 days 180 tabs 3RF Intake Vital signs 3 12/08/24 15:56 09/08/25 09:55 Height 5 ft 10 in 5 ft Weight 243 lb 226 lb Body Mass Index 34.8 44.4 BP 123/82 121/68 BP Location Left Brachial BP Position Sitting BP Cuff Size Adult BP Source Automatic Cuff Respiration 18 18 Pulse 98 90 Pulse Source Palpation Rhythm Regular Temp 97.9 F Temp Source Temporal Artery Scan Pulse Oximetry 98 98 Intake Intake Visit Reasons: Establish care/ New pt visit Clinical Staff Note: New Patient to office. Establish Care. Last seizure was 2 days ago, little ones, last big seizure was a month ago Are you having pain: No Pigment Grinder Required: No Allergies prednisone Allergy (Severe, Verified 09/08/25 09:50) hyper levetiracetam (From [facility]) Adverse Reaction (Severe, Verified 09/08/25 09:50) Unknown Home Medications - Last Reconciled 09/08/25 by ROSETTA CUMMINS LPN cholecalciferol (vitamin D3) 100 mcg PO QDAY citalopram 40 mg PO DAILY glimepiride (Amaryl) 8 mg PO DAILY lamotrigine 25 mg PO BID 90 days lamotrigine 400 mg PO BID HPI HPI Details: 45-year-old male patient who is new to this provider. Patient presents requesting to establish care, review chronic conditions Care Gaps: Colon cancer screening completed earlier this year with normal colonoscopy per pt. Low dose CT scan for lung cancer screening recommended at age 50 due to pastsmoking history. Abdominal aortic aneurysm screening recommended at age 65. HPI: Patient presents to establish primary care. 1. Epilepsy Patient was diagnosed with epilepsy at approximately age 33-34, at least 10 years ago. The etiology is unknown, with no history of head injury or illness preceding onset. Patient experiences two types of seizures. Reported as Clonic seizures occur approximately once per month, characterized by shaking. Patient has not fallen during these episodes due to assistance from others. Patient alsoexperiences absence seizures, occurring a couple of times per week, typically after 5 PM. During these episodes, patient experiences an odd feeling, a sense of impending doom, and auditory distortions where all voices sound the same. Patient stares at one spot, does not move much, and is unable to respond for a period of time. Others often do not notice these episodes. Patient has expressive aphasia with difficulty finding words which seems to be a persisitingissue for some time now(yrs). Patient has not seen a neurologist in over a year.Patient previously achieved several months of seizure freedom (4-6 months) on the same medication regimen. Patient is currently taking lamotrigine dose is unclear and per records seems likley lower than was last rx. Patient has been onlamotrigine for several years, previously tried Keppra which was not tolerated. Patient reports no side effects from current medications. Patient has prescriptions from multiple providers and needs to centralize care. 2. Type 2 Diabetes Mellitus Patient reports diabetes is better controlled. Patient has lost significant weight, from approximately 240-260 lbs to current weight of 220 lbs through intentional weight loss efforts. Patient is not checking blood sugars regularly.Patient denies symptoms of severe hyperglycemia including excessive thirst or frequent urination. Patient is drinking more water intentionally to stay hydrated. Patient is currently taking glimepiride 4 mg daily. NO se 3. Depression Patient was diagnosed with depression a long time ago, described as feeling downbut not suicidal. Patient reports not experiencing depression symptoms currently. Patient only feels down after having a seizure, related to not being able to drive and feeling that the partner has to do more. Patient is currently taking citalopram 20 mg daily. Patient is uncertain about continuing this medication. 4. ADHD Patient reports ADHD symptoms have increased as health has improved and weight has decreased. Patient was not diagnosed as a child but describes thinking abouteverything constantly and now becoming more physically active. Patient experiences inattention and describes being a sentence ahead while talking. Patient is not looking to start medications. 5. Deviated Septum Patient has a deviated septum with partial nasal obstruction. Patient reports being annoyed by it but does not experience frequent bacterial sinus infections.Patient previously had sleep apnea when heavier but symptoms have improved with weight loss. Patient does not think about it frequently. Questionnaires Primary Care Questionnaires PHQ-2/PHQ-9 Where 0=Not at all 1=Several days 2=More than half the days 3=Nearly every day In the last 2 weeks, how often have you been bothered by...: Little interest or pleasure in doing things: not at all and Feeling down, depressed, or hopeless: not at all PHQ-2: Total score: 0 0-4 None-Minimal, 5-9 Mild, 10-14 Moderate, 15-19 Moderately Severe, 20-27 Severe Source: Developed by Drs. Wilmar Escalona, Clarissa Brown, Nicholas Hernandez and colleagues, with an educational shani from [employer]. [facility] Active Problems All Active Problems (Updated 09/08/25 @ 10:50 by ASHOK Weinstein) ADHD (Acute) Aphasia (Acute) Depression with anxiety (Acute) Epilepsy (Acute) Hyperlipidemia (Acute) Hypertriglyceridemia (Acute) Long-term use of high-risk medication (Acute) Obesity (Acute) Screening for prostate cancer (Acute) Seasonal allergies (Acute) Type II diabetes mellitus (Acute) Vitamin D deficiency (Acute) Medical History Medical History (Updated 09/08/25 @ 10:50 by ASHOK Weinstein) De Quervain's tenosynovitis, right right thumb and wrist History of diabetes mellitus History of seizure disorder Plantar fasciitis, bilateral Family History Family History (Updated 09/22/24 @ 14:01 by Clarissa Canales MA) Cousin Obesity Uncle Diabetes CAD (coronary artery disease) Tumor Grandmother Tumor Social History Social History (Updated 09/08/25 @ 09:54 by ROSETTA CUMMINS LPN) Smoking Status: Former smoker If you are a former smoker, when did you quit? (Date/Year): 2003 Number of Years Smoked: 20 Second hand tobacco smoke exposure: No Do you dip or chew tobacco?: No Do you vape?: No Living arrangement: At home Marital Status: Living Condition: With spouse/s.o. Support Person: Yes Has a Durable Power of Board Setter for Health Care?: No DPOA on file?: No Has Health Care Directive?: No Health Care Directive on file?: No Level: Independent Do you feel safe in your home environment?: Yes History of physical, verbal, emotional, or financial abuse?: No ETOH Use: Beer Frequency: Occasional Substance Use: denies use POLST Patient has POLST: No Review of Systems Review of Systems: Constitutional: Denies severe thirst or frequent urination. Respiratory: Denies sleep apnea symptoms currently. Neurological: Experiences seizures as described in HPI, expressive aphasia with word-finding difficulty. Psychiatric: Denies current depression or suicidal ideation. Feels down after seizures related to functional limitations. Result Comments: Last lamotrigine level from November 22, 2024 was 11.6 (therapeutic range 2- 20).Last A1C from October 2024 was 8.7, indicating uncontrolled diabetes at that time. Exam Exam General: Obese; Nontoxic/non-septic appearing, well appearing, well nourished, in no distress. Oriented x 4, normal mood and affect . Ambulating without difficulty. Skin: Good turgor, no rash, unusual bruising or prominent lesions Hair: Normal texture and distribution. Nails: Normal color, no deformities HEENT: Head: Normocephalic, atraumatic, no visible or palpable masses, depressions, or scaring. Nose; slight lft deviated septum wo complication; adequate airflow Neck: Supple, without lesions, bruits, or adenopathy, thyroid non-enlarged, no palpable nodules and non-tender Heart: No cardiomegaly or thrills; regular rate and rhythm, no murmur or gallop Lungs: Clear to auscultation and percussion Back: Spine normal without deformity or tenderness, no CVA tenderness Extremities: No amputations or deformities, cyanosis, edema or varicosities, peripheral pulses intact Musculoskeletal: Normal gait and station. Neurologic: CN 2-12 grossly intact. Psychiatric: Cooperative, intact recent and remote memory, judgment and insight,normal mood and affect. Coding Level of Care Code [80532] Ofc Visit-Est Level 5 Diagnoses Depression with anxiety F41.8 Hypertriglyceridemia E78.1 Type 2 diabetes mellitus without complication, without long-term current use of insulin E11.9 Diabetes mellitus nursing home insulin use: without long term care administrator use Diabetes mellitus complication status: without complication Vitamin D deficiency E55.9 Other intractable epilepsy without status epilepticus G40.804 Epilepsy type: other Intractability: intractable Status epilepticus: without status epilepticus Attention deficit hyperactivity disorder (ADHD), unspecified ADHD type F90.9 Attention deficit-hyperactivity disorder type: unspecified Aphasia R47.01 Additional Codes Mental Health Screening - PHQ CPT II: 3351F ([id number]) Controlling High Blood Pressure - Most recent systolic: < 130 mm Hg ([id number]) Controlling High Blood Pressure - Most recent diastolic: < 80 mm Hg ([id number]) Care Gaps Controlling High Blood Pressure Blood Pressure: 2 Blood Pressure, (90/60 - 130/90) 121/68 mm Hg Today, 09:55 Most recent systolic: < 130 mm Hg Most recent diastolic: < 80 mm Hg Mental Health Screening PHQ-2: Total score: 0 PHQ CPT II: 3351F Smoking Status Smoking Status: Former smoker Comprehensive Diabetes Care Care Gap DM: 2 Hemoglobin A1c %, (4.27-6.07) 8.7 % H 11/22/24 <Electronically signed by Katelin PULIDO> Signed Date/Time: 09/08/25 1117 This chart may have been produced in part or whole using voice recognition software. While efforts are made to proofread this document, sound alike and grammatical errors may occur.
[2025-09-23] VITALS (11 sets, daily range): BP systolic 108–137; BP diastolic 65–77; PULSE 74–91; RESP 14–26; TEMP 36.8; O2SAT 96–99; BMI 32.3
--- NOTE | 2025-09-23 09:43 | EKG_ITS ---
[address] [address] [address], [place] [address] Test Date: 2025-09-23 Pat Name: Guillaume Lee Department: Room: Gender: Male Pharmacy Sales Assistant: RK : 1980 Requested By: Order Number: [id number] Reading MD: Kvng Pendleton Measurements Intervals [place] Rate: 80 P: 44 MS: 164 QRS: 1 QRSD: 94 T: 43 QT: 364 QTc: 419 Interpretive Statements Normal sinus rhythm Low voltage QRS Septal Q Electronically Signed On 09-24-2025 15:03:54 PST by Kvng Pendleton
--- NOTE | 2025-09-23 09:43 | DI.RAD.S_ITS ---
PROCEDURE: XR CHEST 1V INDICATIONS: Chest Pain TECHNIQUE: One view of the chest was acquired. COMPARISON: [facility], JORDANA, XR CHEST 1V, 12/09/2023, 20:13. [facility], JORDANA, CHEST 1 VIEW, 05/24/2017, 12:35. FINDINGS AND IMPRESSION: No airspace consolidation or pleural effusion on this single view study. Low lung volumes. Normal heart size. Unremarkable osseous structures. Dictated by: Josef Christianson M.D. on 09/23/2025 at 10:25 Approved by: Josef Christianson M.D. on 09/23/2025 at 10:25
[2025-09-23 09:50] LABS: Add Manual Diff / Slide Review NO; Hematocrit 44.5 % (41-53); Hemoglobin 15.4 g/dL (13.5-17.5); Lymphocytes Absolute Auto 1700 /uL (1100-4500); Mean Corpuscular HGB Conc 34.6 % (30-36); Mean Corpuscular Hemoglobin 31.5 PG (26-34); Mean Corpuscular Volume 91.1 fL (80-100); Platelet Count 219 X10^3/uL (150-400)
[2025-09-23 09:56] LABS: INR 0.9 (0.9-1.3); Prothrombin Time 10.2 SECONDS (9.4-12.5)
[2025-09-23 09:58] LABS: PTT Partial Thromboplastin Tim 31 SECONDS (25.1-36.5)
--- NOTE | 2025-09-23 10:00 | ED.DIZZY ---
HPI - Dizziness General Chief Complaint: Dizziness Stated Complaint: Dizzy, balance Issues , Light headed today Time Seen by Provider: 09/23/25 09:45 Source: patient Mode of arrival: Family Vehicle History of Present Illness HPI Narrative: Patient is a 45-year-old male history of epilepsy on lamotrigine presenting today with not feeling quite right. He is here with his reports he just been off the last couple of days. Some brain fog difficulty walking. No change in seizure activity. He has small ones usually at night which has not changed. Followed by a neurologist that they recently moved in trying to find a new neurologist. He has not missed any of his medications. He denies any fever chills nausea vomiting chest pain, or other symptoms. Related Data Home Medications ?Medication ?Instructions ?Recorded ?Confirmed glimepiride 4 mg tablet (Amaryl) 4 mg PO QDAY ##0 05/24/17 08/15/25 omeprazole 20 mg capsule,delayed 20 mg PO QDAY ##0 05/24/17 08/15/25 release calcium carbonate (Calcium 500) 500 mg PO BID 09/14/18 08/15/25 cholecalciferol (vitamin D3) 50 2,000 unit PO DAILY 09/14/18 08/15/25 mcg (2,000 unit) capsule citalopram 40 mg tablet (Celexa) 40 mg PO DAILY 09/14/18 08/15/25 lamotrigine 200 mg tablet 400 mg PO BID 09/14/18 08/15/25 blood-glucose sensor (FreeStyle #1 ea 08/15/25 08/15/25 Fiona 3 Plus Sensor device) Previous Rx's ?Medication ?Instructions ?Recorded levetiracetam 500 mg tablet 500 mg PO BID #60 tabs 01/05/23 (Keppra) Allergies Allergy/AdvReac Type Severity Reaction Status Date / Time amoxicillin (AMOXICILLIN) Allergy Unknown Verified 09/23/25 09:30 Patient History Medical History ADD (attention deficit disorder) Depression Diabetes Hypertension Seizure Social History Smoking Status: Former smoker Smoking Status: Former smoker alcohol intake frequency: 0-2 drinks per day Exam Initial Vital Signs Initial Vital Signs: Vital Signs Temperature 98.2 F 09/23/25 09:30 Pulse Rate 87 09/23/25 09:30 Respiratory Rate 18 09/23/25 09:30 Blood Pressure 137/77 09/23/25 09:30 Pulse Oximetry 99 09/23/25 09:30 Oxygen Delivery Method Room Air 09/23/25 09:30 GENERAL: Alert well-appearing 35-year-old male and in no acute distress. HEENT: Head atraumatic,EOMI, pupils reactive, face symmetric, moist mucous membranes CARDIOVASCULAR: Regular rate and rhythm without murmurs, rubs or gallops. RESPIRATORY: Breath sounds equal bilaterally, no wheezes rales or rhonchi. ABDOMEN: Soft, nontender. Normoactive bowel sounds all 4 quadrants. No guarding or rebound. EXTREMITIES: Normal range of motion, no clubbing or edema. Neurovascularly intact NEUROLOGICAL: Alert and oriented x4.Normal gait and speech. Cranial nerves II through XII grossly intact. Good [id number], good [id number], strength equal bilaterally, no dysarthria or aphasia, sensation in tact to soft touch bilaterally, no visual changes, no facial droop SKIN: Warm, dry, no laceration, no petechiae, no rashes or lesions. Course Orders Ordered: ED Orders 09/23/25 09:37 Complete Blood Count AUTO DIFF Stat Comprehensive Metabolic Panel Stat Lipase Stat Magnesium Stat NT-proBNP (BNP-Adult 18+) Stat PTT Partial Thromboplastin Viral Stat Prothrombin Time INR Stat Troponin & CK Cardiac Panel Stat 09/23/25 09:43 XR chest 1V Stat EKG-12 Lead Stat 09/23/25 10:25 CT head/brain wo con Stat Discontinued Medications Aspirin (Aspirin 81 Mg Chew Tab) 324 mg PO NOW ONE Stop: 09/23/25 09:43 Last Admin: 09/23/25 11:16 Dose: 324 mg Documented By: CARLA Sodium Chloride (Normal Saline 0.9%) 1,000 mls @ 1,000 mls/hr IV BOLUS ONE Stop: 09/23/25 11:25 Last Admin: 09/23/25 11:16 Dose: 1,000 mls/hr Documented By: CARLA Vital Signs Vital signs: Vital Signs - 8 hr 09/23/25 09:30 09/23/25 09:43 09/23/25 09:44 Temperature 98.2 F Pulse Rate 87 86 Respiratory Rate 18 26 H Blood Pressure 137/77 126/66 Pulse Oximetry 99 98 Oxygen Delivery Method Room Air 09/23/25 09:44 09/23/25 10:00 09/23/25 10:00 Temperature Pulse Rate 83 85 Respiratory Rate 21 20 Blood Pressure 110/65 Pulse Oximetry 98 97 Oxygen Delivery Method 09/23/25 10:30 09/23/25 10:30 09/23/25 10:30 Temperature Pulse Rate 82 Respiratory Rate 22 Blood Pressure 108/69 108/69 Pulse Oximetry 97 Oxygen Delivery Method 09/23/25 11:00 09/23/25 11:00 09/23/25 11:30 Temperature Pulse Rate 81 91 H Respiratory Rate 18 Blood Pressure 111/73 Pulse Oximetry 97 96 Oxygen Delivery Method 09/23/25 12:00 09/23/25 12:30 09/23/25 13:00 Temperature Pulse Rate 74 74 76 Respiratory Rate 17 18 16 Blood Pressure Pulse Oximetry 98 97 98 Oxygen Delivery Method 09/23/25 13:14 Temperature Pulse Rate 81 Respiratory Rate 14 Blood Pressure 124/74 Pulse Oximetry 98 Oxygen Delivery Method Room Air MDM - Dizziness Lab Data 09/23/25 09:37 09/23/25 09:37 Labs: Lab Results 09/23/25 Range/Units 09:37 WBC 5.8 (4.5-11.0) X10^3/uL RBC 4.88 (4.5-5.9) X10^6/uL Hgb 15.4 (13.5-17.5) g/dL Hct 44.5 (41-53) % MCV 91.1 (80-100) fL MCH 31.5 (26-34) PG MCHC 34.6 (30-36) % RDW 13.0 (11.6-14.8) % Plt Count 219 (150-400) X10^3/uL Neut % (Auto) 59.0 (50-75) % Lymph % (Auto) 29.5 (25-40) % Cooper % (Auto) 8.4 (3-14) % Eos % (Auto) 2.3 (2-4) % Baso % (Auto) 0.8 (0-2) % Neut # (Auto) 3400 (2397-9889) /uL Lymph # (Auto) 1700 (5215-7483) /uL Cooper # (Auto) 500 (0-900) /uL Eos # (Auto) 100 (0-450) /uL Baso # (Auto) 0 (0-100) /uL PT 10.2 (9.4-12.5) SECONDS INR 0.9 (0.9-1.3) APTT 31 (25.1-36.5) SECONDS Sodium 135 L (137-145) mmol/L Potassium 4.5 (3.4-5.1) mmol/L Chloride 99 (98-107) mmol/L Carbon Dioxide 26 (22-32) mmol/L BUN 17 (9-20) mg/dL Creatinine 0.73 (0.66-1.25) mg/dL Estimated GFR > 60 (>60) mL/min BUN/Creatinine Ratio 23.3 H (6-22) Glucose 440 H (70-99) mg/dL Calcium 9.5 (8.4-10.2) mg/dL Magnesium 1.6 (1.6-2.3) mg/dL Total Bilirubin 1.2 (0.2-1.3) mg/dL AST 26 (17-59) IU/L ALT 28 (<50) IU/L Alkaline Phosphatase 122 (38-126) U/L Total Creatine Kinase 92 (55-170) U/L Troponin I < 0.012 (0.01-0.034) ng/mL NT-Pro-B Natriuret Pep 38 (<125) pg/mL Total Protein 7.5 (6.3-8.2) g/dL Albumin 4.6 (3.5-5.0) g/dL Globulin 2.9 (1.7-4.1) g/dL Albumin/Globulin Ratio 1.6 (1.0-2.8) Lipase 167 (23-300) U/L Urine Dip Bedside Urine Glucose 250 mg/dl Bedside Urine Bilirubin - Negative Bedside Urine Ketone - Negative Urine Specific [place] 1.010 Bedside Urine Occult Blood - Negative Bedside Urine pH 6.0 Bedside Urine Protein - Negative Bedside Urine Urobilinogen - Negative Bedside Urine Nitrite - Negative Bedside Urine Leukocytes - Negative Esterase Imaging Data CT scan - head: Radiologist's Impression: PROCEDURE: CT HEAD/BRAIN WO CON INDICATIONS: dizzy. hx epilepsy TECHNIQUE: Noncontrast 4.5 mm thick angled axial sections acquired from the foramen magnum to the vertex, with coronal and sagittal reformats. For radiation dose reduction, the following was used: automated exposure control, adjustment of mA and/or kV according to patient size. COMPARISON: [facility], CT, CT HEAD/BRAIN WO CON, 12/09/2023, 23:49. FINDINGS: Image quality: Diagnostic CSF spaces: Basal cisterns are patent. Lateral ventricles are symmetric. Volume: Mild volume loss. Brain: No acute hemorrhage. No gross loss of pemberton-white differentiation. Craniofacial structures: No significant paranasal sinus opacities. IMPRESSION: No acute intracranial pathology. If there is high concern for parenchymal pathology, consider further evaluation with MRI. Dictated by: Josef Christianson M.D. on 09/23/2025 at 12:05 Chest x-ray: Radiologist's Impression: PROCEDURE: XR CHEST 1V INDICATIONS: Chest Pain TECHNIQUE: One view of the chest was acquired. COMPARISON: [facility], CR, XR CHEST 1V, 12/09/2023, 20:13. [facility], CR, CHEST 1 VIEW, 05/24/2017, 12:35. FINDINGS AND IMPRESSION: No airspace consolidation or pleural effusion on this single view study. Low lung volumes. Normal heart size. Unremarkable osseous structures. Dictated by: Josef Christianson M.D. on 09/23/2025 at 10:25 Approved by: Josef Christianson M.D. on 09/23/2025 at 10:25 ECG Data Attestation: I personally reviewed and interpreted this ECG as follows: Prior ECG tracings: available for review Interpretation: Normal sinus rhythm rate 80 ND interval 164 QRS [address] changes no T-wave inversions [facility] Narrative Medical decision making narrative: [facility] CC: Dizziness weakness Complicating co-morbidities: Epilepsy Data collected from: [ ] Medical records reviewed: Previous ED record shows he also has a history of diabetes reflux and anxiety Differential considered: Vertigo electrolyte abnormality anemia intracranial mass hemorrhage Exam documented above, pertinent findings include: Alert well-appearing 45-year-old male NIH is 0 moving all extremities Lab Test results independently reviewed as above. Pertinent findings: CBC within normal limits CMP no electrolyte abnormality no RADHA glucose 440 no evidence of DKA Bilirubin liver enzymes lipase within normal limits Troponin negative Independently reviewed EKG as above Sinus rhythm similar to prior Imaging studies independently reviewed: Head CT no acute intracranial hemorrhage Chest x-ray no abnormality Consultations: [ ] Treatments: IV fluids Re-evaluations: Patient is feeling roughly the same after a L of fluids. No focal deficits. No ataxia no concern for CVA at this time. Discussion: Patient 45-year-old male history of seizures presenting today with ongoing altered mental status brain fog some difficulty walking and dizziness. No nausea no vomiting no neurologic or focal deficits at this time. Workup in the emergency department is overall reassuring including head CT and blood work. He is found to have elevated glucose of 440. He does take glimepiride for diabetes he says that he has previously taken metformin but can not take it any longer. He also had a continuous glucose monitor but due to cost and insurance stopped covering it he no longer has it. Hyperglycemia may or may not be contributing to his symptoms. He was given a L of IV fluids here in the ED. He does have a primary care provider and has an appointment coming up. Discharge Plan Departure Patient Disposition: Home Clinical Impression: Hyperglycemia Instructions: DI for Hyperglycemia -- Adult Activity Restrictions/Additional Instructions: *You have been diagnosed with hyperglycemia *What to do: At this time workup in the emergency department is overall good. You were found to have high glucose which may or may not be contributing to your problems. I would talk with your primary care provider may need better sugar control and medication change *Continue to take medications as directed *Follow up with your primary care provider in 2-3 days or call [phone] *Return to ER if you should have increasing dizziness falls chest pain confusion or any new, worsening or concerning symptoms Prescriptions: No Action lamotrigine 200 mg tablet 400 mg PO BID citalopram [Celexa] 40 mg tablet 40 mg PO DAILY cholecalciferol (vitamin D3) 2,000 unit capsule 2,000 unit PO DAILY calcium carbonate [Calcium 500] 500 mg calcium (1,250 mg) tablet 500 mg PO BID (DME) FreeStyle Fiona 3 Plus Sensor Device See Rx Instructions .ROUTE QD-QID Qty: 1 Rx Instructions: As directed glimepiride [Amaryl] 4 MG tablet 4 mg PO QDAY Qty: 0 omeprazole 20 MG capsule,delayed release(DR/EC) 20 mg PO QDAY Qty: 0 levetiracetam [Keppra] 500 mg tablet 500 mg PO BID Qty: 60 0RF Stand Alone Forms: Patient Portal/API
[2025-09-23 10:01] LABS: Alanine Aminotransferase 28 IU/L (<50); Albumin 4.6 g/dL (3.5-5.0); Albumin Globulin Ratio 1.6 (1.0-2.8); Alkaline Phosphatase 122 U/L (38-126); Blood Urea Nitrogen 17 mg/dL (9-20); Calcium 9.5 mg/dL (8.4-10.2); Carbon Dioxide 26 mmol/L (22-32); Chloride 99 mmol/L (98-107); Creatine Kinase 92 U/L (55-170); Estimated Glomerular Filt Rate > 60 mL/min (>60); Globulin 2.9 g/dL (1.7-4.1); Glucose 440 mg/dL (70-99); HEMOLYSIS 21 (0-50); Lipase 167 U/L (23-300); Magnesium 1.6 mg/dL (1.6-2.3); Potassium 4.5 mmol/L (3.4-5.1); Sodium 135 mmol/L (137-145); Total Protein 7.5 g/dL (6.3-8.2)
[2025-09-23 10:12] LABS: NT-proBNP (BNP-Adult 18+) 38 pg/mL (<125); Troponin I < 0.012 ng/mL (0.01-0.034)
--- NOTE | 2025-09-23 10:25 | DI.CT.S_ITS ---
PROCEDURE: CT HEAD/BRAIN WO CON INDICATIONS: dizzy. hx epilepsy TECHNIQUE: Noncontrast 4.5 mm thick angled axial sections acquired from the foramen magnum to the vertex, with coronal and sagittal reformats. For radiation dose reduction, the following was used: automated exposure control, adjustment of mA and/or kV according to patient size. COMPARISON: [facility], CT, CT HEAD/BRAIN WO CON, 12/09/2023, 23:49. FINDINGS: Image quality: Diagnostic CSF spaces: Basal cisterns are patent. Lateral ventricles are symmetric. Volume: Mild volume loss. Brain: No acute hemorrhage. No gross loss of pemberton-white differentiation. Craniofacial structures: No significant paranasal sinus opacities. IMPRESSION: No acute intracranial pathology. If there is high concern for parenchymal pathology, consider further evaluation with MRI. Dictated by: Josef Christianson M.D. on 09/23/2025 at 12:05 Approved by: Josef Christianson M.D. on 09/23/2025 at 12:07
[2025-09-23] MEDS: ASPIRIN 81 MG CHEW TAB 324 MG PO (11:16)
[2025-09-23] MEDS: SODIUM CHLORIDE 0.9% 1,000 ML 1000 ML IV (11:16)
== END 2025-09-23 13:15 | disposition home or self-care (01) ==
PROVIDERS: Emergency Provider Emergency Medicine
DX: E11.65 Type 2 diabetes mellitus with hyperglycemia (principal); R26.89 Other abnormalities of gait and mobility; F32.A Depression, unspecified; I10 Essential (primary) hypertension
CPT/HCPCS: 36415; 70450; 71045; 80053; 81003; 82550; 83690; 83735; 83880; 84484; 85025; 85610; 85730; 93005; 96360; 99284; J7030